=== PATIENT | male | born 1950 | race Caucasian/White ===

== ENCOUNTER 2020-06-12 01:43 | Inpatient (IN) | payer MEDICARE, MEDICAID, SELFPAY ==
[2020-06-12] VITALS (21 sets, daily range): BP systolic 76–129; BP diastolic 37–72; PULSE 55–111; RESP 17–26; TEMP 34.6–37.3; O2SAT 92–100; BMI 22.8; BMI 22.9
--- NOTE | 2020-06-12 02:18 | PCM.HP.STD ---
Problem List (1) Acute encephalopathy Status: Acute (2) Pneumonia due to COVID-19 virus Status: Acute (3) CHF exacerbation Status: Acute Qualifiers: Heart failure type: diastolic Qualified Code(s): I50.33 - Acute on chronic diastolic (congestive) heart failure (4) Atrial flutter, paroxysmal Status: Acute (5) Type 2 diabetes mellitus with hypoglycemia Status: Acute Qualifiers: Diabetes mellitus snf insulin use: with snf use Diabetes mellitus complication detail: without coma Qualified Code(s): E11.649 - Type 2 diabetes mellitus with hypoglycemia without coma; Z79.4 - correction (current) use of insulin (6) ESRD (end stage renal disease) on dialysis Status: Chronic (7) Hypertension Status: Chronic Qualifiers: Hypertension type: essential hypertension Qualified Code(s): I10 - Essential (primary) hypertension (8) Hyperlipidemia Status: Chronic Qualifiers: Hyperlipidemia type: unspecified Qualified Code(s): E78.5 - Hyperlipidemia, unspecified (9) Hypothyroidism Status: Chronic Qualifiers: Hypothyroidism type: unspecified Qualified Code(s): E03.9 - Hypothyroidism, unspecified (10) Tobacco use Status: Chronic (11) Alzheimer's dementia Status: Chronic Qualifiers: Alzheimer's disease onset: unspecified onset Dementia behavioral disturbance: without behavioral disturbance Qualified Code(s): G30.9 - Alzheimer's disease, unspecified; F02.80 - Dementia in other diseases classified elsewhere without behavioral disturbance (12) History of alcohol abuse Status: Chronic History of Present Illness Date of Admission: 06/12/20 Chief Complaint: Encephalopathy, COVID, ? New Aflutter The patient is a 69 y/o M from [facility] w/ PMHx: Former EtOH Abuse, Alzheimer's dementia, GERD, Diastolic CHF, ESRD on HD T, , Sat, HTN, HLD, Hypothyroidism, Diabetes mellitus type II who presents to the [facility] as direct admission from [facility] ED with history of recent Covid testing 2 days prior on Thursday with history of increased confusion, noted to be encephalopathic at a skilled facility, arrived unkempt with report of nausea, emesis and loose stools with no specific fever, cough or dyspnea complaint but blood sugar upon presentation to be significantly low at 20 with some mental status improvement following 2 amp D50 upon presentation. Patient denies any alteration in sense of taste or smell. Upon presentation to [facility] patient mental status completely returned to baseline, appropriately answering questions, denies any acute complaints at this time. He denies any specific weight gain or orthopnea does admit he has intermittent issues with volume overload. Work-up in the OSH ED included: VS: T 36.5, HR 53, RR 20, 98% on RA, BP 94/51 (initial BP 102/61->89/54 low) CBC: WBC 7.5, Hgb 10.8, plts 161 without marked shift CMP: Na 138, K 4.5, Chl 104, CO2 22, BUN/Cr 45/6.4, glucose 20 (2 amp-->202 glucose), T Bili 1.6, AST/ALT 19/, Alk phos 128 LDH 139 Lactic acid 0.9 NH 42 INR 1.4 EKG: Aflutter, 4:1 block, 53 beats per minute Troponin: 0.07 Medications: CXR with bibasil infiltrates CTPA with cardiomegaly, small BL effusions, bibasilar infiltrates with evidence congestion CT head without acute intracranial findings, L occiptal encephalomalacia Medications: Levaquin 750 mg IV x 1, 250 cc NS bolus Past Medical History Past Medical History (Chronic Problems): Chronic Problems ESRD (end stage renal disease) on dialysis (Chronic) Hypertension (Chronic) Hyperlipidemia (Chronic) Hypothyroidism (Chronic) Tobacco use (Chronic) Alzheimer's dementia (Chronic) History of alcohol abuse (Chronic) Allergies rosin Allergy (Verified 06/26/16 07:04) Unknown Home Medications: Ambulatory Orders Medication Instructions Recorded Aspirin [Aspirin, Baby] 81 mg PO DAILY@0800 11/25/13 Docusate Sodium [Colace] 100 mg PO BID 11/25/13 Gabapentin [Neurontin] 300 mg PO BIDCM 11/25/13 Insulin Aspart [Novolog Flexpen] 15 units SC TIDCM 11/25/13 Insulin Detemir [Levemir FlexPen] 45 units SC QHS 11/25/13 Isosorbide DN [Isordil] 10 mg PO BID 11/25/13 Levothyroxine [Synthroid] 25 mcg PO DAILY 11/25/13 Omeprazole [Prilosec] 20 mg PO DAILY 11/25/13 Vitamin B Complex Vit C No.3 [B 1 each PO DAILY 11/25/13 Complex with Vitamin C] Amlodipine [Norvasc] 10 mg PO DAILY 06/26/16 Atorvastatin Calcium [Lipitor] 20 mg PO QHS 06/26/16 Calcium Acetate [Phoslo Gel Cap] 667 mg PO TIDCM 06/26/16 Carvedilol [Coreg] 25 mg PO BID 06/26/16 Cinacalcet HCl [Sensipar] 30 mg PO DAILY 06/26/16 Clonidine HCl 0.1 mg PO DAILY 06/26/16 Ergocalciferol [Vitamin D] 50,000 unit PO Q7D 06/26/16 Surgical History: - - Fistula placement. Psychiatric History: No pertinent psych hx Lives: [facility] Smoking Status: Former smoker - Patient quit cigarette tobacco usage approximately 35 years prior with prior to his approximately 1 pack/day since he been a teenager. Tobacco Use: Non-smoker Alcohol: Occasional - Notes previous history of alcohol abuse, now will very rarely have 1 beer. Drugs: None - *Family History Maternal History Items: Cancer - Mother with history of cancer, unclear type. Paternal History Items: Heart Disease Review of Systems Constitutional: Reports: Anorexia, Malaise, Weakness, Fatigue. Denies: Chills, Fever, Weight Change HEENT: Denies: Head Aches, Sinus Congestion, Sinus Drainage Cardiovascular: Denies: Chest Pain, Palpitations Respiratory: Denies: Cough, Shortness of Breath, Shortness of breath at rest, Shortness of breath upon exertion, Sputum production Gastrointestinal: Reports: Diarrhea. Denies: Abdominal Pain, Nausea, Vomiting Genitourinary: Denies: Dysuria Musculoskeletal: Denies: Joint Pain, Joint Tenderness Skin: Denies: Rash, Wounds Neurological: Reports: Confusion. Denies: Focal weakness, Numbness, Tingling Psychiatric: Denies: Anxiety, Depression, Homicidal Ideations, Suicidal Ideations Hematologic/ Lymphatic: Reports: Anemia. Denies: Easy Bruising, Easy Bleeding VTE Information - Inpt Only VTE Present on Admission: No VTE Mechan Device Prophylaxis: SCD's VTE Pharm Prophylaxis ordered?: Yes Patient Problems: Active and Suspected Problems Acute encephalopathy (Acute) Pneumonia due to COVID-19 virus (Acute) CHF exacerbation (Acute) Atrial flutter, paroxysmal (Acute) Type 2 diabetes mellitus with hypoglycemia (Acute) Subjective: Seated upright in the PCU bed, fatigued otherwise no acute distress, mental status improved. Objective: Physical Examination: General: awake, alert, oriented x > 3 including to person, place, year, month, president, cooperative, seated upright in the PCU bed in no apparent distress. Skin: normal color, turgor, no icterus, cyanosis except bilateral lower extremity chronic venous stasis skin changes. HEENT: AT/NC, EOMI, PERRLA, moderately MM, poor dentition, no carotid bruits, no marked JVD noted. Lungs: Diminished breath sounds bilaterally, greater bilateral bases, minimal rales, no obvious distress, no obvious rhonchi or wheezing. Heart: Bradycardic; no gallop, rub audible. Abdomen: soft, thin habitus, NTTP, ND, normal BS, no HSM. Extremities: no cyanosis, clubbing, or edema, see skin, left upper extremity with positive thrill but very soft and focal specific. Neurological: patient awake, alert, oriented as noted; cognitive function returned to baseline intact; pupils equally reactive to light and accomodation; cranial nerves II-XII grossly normal, moving all 4 extremities, no focal deficits, strength moderately global decreased. Psychiatric: affect appears fatigued otherwise normal, no acute evidence of depressive or anxiety feelings. - Physical Exam Current Medications Acetaminophen (Acetaminophen 325 Mg Tablet) 650 mg PO Q6H PRN PRN PRN Reason: Pain Score 1-10/Temp > 100.7 F Al Hydroxide/Mg Hydroxide (Mag Hydrox/Al Hydrox/Simeth 30 Ml Udc) 30 ml PO Q6H PRN PRN PRN Reason: Gastric Burning Apixaban (Apixaban 2.5 Mg Tablet) 2.5 mg PO BID [place] Furosemide (Furosemide 40 Mg/4 Ml Vial) 40 mg IV BID@1000,1800 [place] Guaifenesin (Guaifenesin 10 Ml Udc (200mg/10ml)) 20 ml PO Q4H PRN PRN PRN Reason: COUGH Hydralazine HCl (Hydralazine 20 Mg/Ml Vial) 10 mg IV Q4H PRN PRN PRN Reason: SBP > 160 Insulin Human Lispro (Insulin Lispro 100 Unit/Ml Insuln.Pen) 0 unit SC ACHS [place]; Protocol Melatonin (Melatonin 3 Mg Tablet) 3 mg PO QHS PRN PRN PRN Reason: INSOMNIA Morphine Sulfate (Morphine 2 Mg/Ml Syringe) 2 mg IV Q3H PRN PRN PRN Reason: Pain Score 6-10 Nitroglycerin (Nitroglycerin (Inpatient Use) 0.4 Mg Tab.Subl) 0.4 mg SUBLINGUAL Q5M PRN PRN Reason: CARDIAC/CHEST PAIN Ondansetron HCl (Ondansetron 4 Mg/2 Ml Vial) 4 mg IV Q8H PRN PRN PRN Reason: NAUSEA/VOMITING Oxycodone HCl (Oxycodone 5 Mg Tablet) 5 mg PO Q4H PRN PRN PRN Reason: Pain Score 4-5 Prochlorperazine Edisylate (Prochlorperazine 10 Mg/2 Ml Vial) 5 mg IV Q4H PRN PRN PRN Reason: Breakthrough Nausea/Vomiting Throat Lozenges (Benzocaine/Menthol 1 Lozenge) 1 lozenge MUCOUS MEM Q2H PRN PRN PRN Reason: SORE THROAT Assessment/Plan All Active Problems Acute encephalopathy (Acute) Pneumonia due to COVID-19 virus (Acute) CHF exacerbation (Acute) Atrial flutter, paroxysmal (Acute) Type 2 diabetes mellitus with hypoglycemia (Acute) The patient is a 69 y/o M from [facility] w/ PMHx: Former EtOH Abuse, Alzheimer's dementia, GERD, Diastolic CHF, ESRD on HD T, , Thu, HTN, HLD, Hypothyroidism, Diabetes mellitus type II who presents to the [facility] as direct admission from [facility] ED with history of recent Covid testing 2 days prior on Thursday with history of increased confusion, noted to be encephalopathic at a skilled facility, arrived unkempt with report of nausea, emesis and loose stools with no specific fever, cough or dyspnea complaint but poor oral intake with hypoglycemia. 1. Acute Encephalopathy, Multifactorial, secondary to Nausea, Emesis, Diarrhea w/ BL Pneumonia secondary to Acute Viral Syndrome, COVID-19, #2, #3, #4: Patient from outside ED report with recent Covid test positive, chest x-ray per their report with positive bilateral pneumonia although they report CT with concerning findings for bibasilar infiltrates but also noted congestion this findings may be multifactorial, will admit to the Covid PCU unit, will maintain on oxygen with wean as tolerated to room air, HOB, IS parameters w/ pending sputum cultures and urine antigens, obtain respiratory viral panel, will obtain initial assessment Covid panel including procalcitonin, CRP, CPK, Ferritin, LDH, D-dimer, given questionable new onset atrial flutter will request ECHO, cycle cardiac enzymes, repeat EKG in AM, continue supportive care including q 2 hour turning including prone given no prone bed availability, given concern for volume overload will dose Lasix IV as noted. Given no overt hypoxia will defer immediate start of decadron. Infectious disease consulted, pending. 2. ? 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 Will initiate patient as blood pressure allows on Lasix 40 mg IV x 1 pending HD 06/12/20, maintain on cardiac telemetry, obtain cardiac enzyme series, obtain serial EKGs, monitor I/Os, obtain TSH and magnesium level, obtain ECHO. Starting on eliquis. May consider Cardiology consult. 3. New onset atrial flutter versus: EKG in ED w/ atrial flutter 4:1 noted at outside ED. Unclear if patient has a history, not in prior records per intermediate facility. Will maintain on telemetry, obtain EKG upon presentation to assure correct rhythm, obtain cardiac enzyme serial set, obtain magnesium level, obtain ECHO, obtain TSH level. CHADs scoring appropriate for anticoagulation therefore will place on eliquis regimen pending further history review and repeat EKG to assure correct rhythm. May consider cardiology consultation if appropriate. 4. Diabetes mellitus type II with symptomatic hypoglycemia: Patient with recent poor oral intake with significant hyperglycemia upon outside facility ED presentation with glucose 20, administered to amp with improvement of blood sugar to 200 range, mental status changes noted upon their presentation since appear resolved. Will will temporarily hold home insulin regimen given recent poor oral intake and significant hyperglycemia pending reassessment of intake, ADA/Cardiac/Renal diet, accu checks w/ ISS. HgbA1c pending. 5. ESRD: Will continue patient HD regimen T, Th, Sat, consult Nephrology, continue patient PhosLo and Sensipar regimen. 6. Hypertension: BP low normal at outside facility, pending repeat assessment would continue patient hypertensive regimen, noted prior to include Norvasc, Coreg, clonidine, isosorbide although suspect would need to be held, IV Lasix trial x1 as noted above pending HD, PRN hydralazine. 7. Hyperlipidemia: Continue home statin regimen. 8. Hypothyroidism: Continue home synthroid regimen. 9. Alzheimer's dementia with unclear behavioral disturbance history: Complicates presentation, long-term intermediate facility care resident. 10. Former alcohol abuse: Encouraged continued sobriety although patient does admit he will occasionally have a beer, intermediate facility at which she resides does not allow alcohol. 11. DVT prophylaxis: SCDs, eliquis regimen. 12. CODE status: Patient BIRDIE is his sister Junie and living will is currently in place. Discussed CODE status at length including difference between FULL code, DNR-CCA and DNR-CC status. Following discussions about the differences in these status, requested Full Code status but adamantly notes that per his living will he does not want to be on prolonged life support. Advanced Care Planning Face to Face Time: 16 minutes. Inpatient E&M: 84454 Init Hosp L3 Procedures: 12868 Advncd Care Plan 30 Min
--- NOTE | 2020-06-12 03:03 | EKG12_ITS ---
Test Reason : ADMISSION Blood Pressure : / mmHG Vent. Rate : 055 BPM Atrial Rate : 055 BPM P-R Int : 198 ms QRS Dur : 124 ms QT Int : 386 ms P-R-T Axes : 042 -63 235 degrees QTc Int : 369 ms Atrial Flutter Left axis deviation Left bundle branch block Abnormal ECG Confirmed by LISSET HAMMER, JUDY ([id number]), news assignment editor JAROD MERIDA ([id number]) on 06/13/2020 1:57:51 PM Referred By: ZUHAIR Confirmed By:JUDY DARLING MD
[2020-06-12] MEDS: Furosemide 40 MG/4 ML Vial IV (03:25)
[2020-06-12 03:26] LABS: Bedside Glucose 150 mg/dL (70-110)
[2020-06-12] MEDS: 0.9% Saline Lock 10 ML Syringe IV ×5 (03:26→23:50)
[2020-06-12 04:24] LABS: D-Dimer Quantitative (DVT/PE) 0.95 FEU/ug/m (0.27-0.49)
[2020-06-12 04:40] LABS: Procalcitonin 0.69 ng/mL (0.00-0.09)
[2020-06-12 05:27] LABS: Ferritin 14962 ng/mL (26-388); LDH 154 U/L (87-241); Magnesium 2.6 mg/dL (1.6-2.6); T4 Free Direct 5.88 ng/dL (0.76-1.46)
--- NOTE | 2020-06-12 05:55 | RAD_ITS ---
STUDY: X-RAY CHEST REASON FOR EXAM: Male, 69 years old. DYSPNEA, COUGH, COVID + TECHNIQUE: Single AP portable view of the chest. COMPARISON: None. FINDINGS: EKG electrodes are seen. Mild degree of increased markings are seen in the peripheral aspect of the right upper and right lower lobes with thickening of the right minor fissure. Mild increased markings in the lateral peripheral aspect of the left lung base. There is mild cardiac enlargement. Normal mediastinum and michael. Normal visualized pulmonary arteries. There is atherosclerotic tortuosity of the aortic arch and descending thoracic aorta. Normal visualized thoracic spine. Normal visualized ribs, clavicles, and shoulders. There is no demonstrated abnormality of the visualized soft tissue structures of the upper abdomen. RAD/Chest 1 View (Portable) IMPRESSION: Increased markings suggestive of early infiltrate in the peripheral lateral aspect of the right upper and right lower lobes as well as in the left mid lung. Thickening of the right minor fissure. Electronically Signed: Aj Caceres, at 9:12 EST , Service support ,
[2020-06-12 06:47] LABS: Absolute Lymphocyte Count 0.59 X10^3/uL (0.83-4.51); Absolute Neutrophil Count 5.8 X10^3/uL (2.0-7.7); Basophil# 0.01 X10^3/uL; Basophil% 0.1 % (0-1); Hematocrit 34.1 % (40-54); Hemoglobin 10.4 g/dL (13.0-16.5); Lymphocyte # 0.59 X10^3/ul (4.0); Lymphocyte % 8.5 % (19-41); Mean Corp Hgb Conc 30.5 g/dL (32-36); Mean Corpuscular Volume 98.3 fL (80-94); Mean Platelet Vol. 9.8 fl (6.2-12.0); Monocyte# 0.54 X10^3/uL; Monocyte% 7.8 % (0-10); NRBC Flagged by Analyzer 0 % (0-5); Neutrophil # 5.78 X10^3/uL (2.7-7.7); Neutrophil % 83.2 % (47-70); POSITIVE DIFFERENTIAL YES; POSITIVE MORPHOLOGY YES; Platelet Count 114 K/mm3 (150-450); RBC Distribution Width CV 19.1 % (11.6-14.6); RBC Distribution Width SD 68.5 fl (35.1-43.9); Red Blood Count 3.47 M/mm3 (4.6-6.2)
[2020-06-12 06:50] LABS: Differential Indicated SCAN CRITERIA MET
[2020-06-12 07:03] LABS: Differential Comment SCANNED; Macrocytosis RARE
[2020-06-12 07:46] LABS: ALB/GLOB Ratio 0.6 RATIO (0.9-2.4); AST(SGOT) 31 U/L (15-37); Alanine Aminotransfer ALT/SGPT 28 U/L (16-61); Albumin, Serum 2.7 g/dL (3.2-5.0); Alkaline Phosphatase 142 U/L (45-117); Anion Gap 10 (5-15); BUN 58 mg/dL (7-18); BUN/Creat Ratio 7.3 RATIO (10-20); Calcium,Total 7.1 mg/dL (8.5-10.1); Chloride 103 mmol/L (98-107); Creatinine, Serum 7.93 mg/dL (0.70-1.30); EST Glomerular Filtration Rate 7 mL/min (>60); Est Glom Filt Rate - Afr Amer 9 mL/min (>60); Estimated Creatinine Clearance 8.51 ml/min; Globulin 4.3 g/dL (2.2-4.2); Glucose 70 mg/dL (74-106); Sodium Level 137 mmol/L (136-145)
[2020-06-12 08:26] LABS: Bedside Glucose 71 mg/dL (70-110)
[2020-06-12 08:26] LABS: Bedside Glucose 55 mg/dL (70-110)
[2020-06-12 08:29] LABS: Hemoglobin A1c 6.7 % (3.8-5.6)
--- NOTE | 2020-06-12 09:26 | PCM.CONS.R ---
Consultation - Renal PCP/ Referring MD: Requesting physician: [] Primary care physician: Dr. Reginald Esteves MD - History of Present Illness History of Present Illness: The patient is a 69 year old M PMH of ESRD on TTS HD schedule. Patient was diagnosed witj COVID-19 infection 2 days ago Patient was brought in for change in mental status and was found to have hypoglycemia. Patient received D50 and mentation improved to baseline CT chest showed B/L pneumonia and congestion Patient was not seen or examined this am to limit exposure to COVID-19 viral infection and to preserve PPE. ROS and physical exam were not performed d/w with patient's nurse and reviewed the admission note. Patient is o 2l/m NC with S02 95%[] - Allergies Allergies: Allergies adhesive tape Allergy (Unknown, Verified 06/12/20 04:45) PT UNSURE OF REACTION rosin Allergy (Verified 06/26/16 07:04) Unknown - Current Medications Current Medications: Current Medications Acetaminophen (Acetaminophen 325 Mg Tablet) 650 mg PO Q6H PRN PRN PRN Reason: Pain Score 1-10/Temp > 100.7 F Al Hydroxide/Mg Hydroxide (Mag Hydrox/Al Hydrox/Simeth 30 Ml Udc) 30 ml PO Q6H PRN PRN PRN Reason: Gastric Burning Apixaban (Apixaban 2.5 Mg Tablet) 2.5 mg PO BID [place] Guaifenesin (Guaifenesin 10 Ml Udc (200mg/10ml)) 20 ml PO Q4H PRN PRN PRN Reason: COUGH Hydralazine HCl (Hydralazine 20 Mg/Ml Vial) 10 mg IV Q4H PRN PRN PRN Reason: SBP > 160 Insulin Human Lispro (Insulin Lispro 100 Unit/Ml Insuln.Pen) 0 unit SC ACHS [place]; Protocol Last Admin: 06/12/20 07:00 Dose: Not Given Documented by: Melatonin (Melatonin 3 Mg Tablet) 3 mg PO QHS PRN PRN PRN Reason: INSOMNIA Morphine Sulfate (Morphine 2 Mg/Ml Syringe) 2 mg IV Q3H PRN PRN PRN Reason: Pain Score 6-10 Nitroglycerin (Nitroglycerin (Inpatient Use) 0.4 Mg Tab.Subl) 0.4 mg SUBLINGUAL Q5M PRN PRN Reason: CARDIAC/CHEST PAIN Ondansetron HCl (Ondansetron 4 Mg/2 Ml Vial) 4 mg IV Q8H PRN PRN PRN Reason: NAUSEA/VOMITING Oxycodone HCl (Oxycodone 5 Mg Tablet) 5 mg PO Q4H PRN PRN PRN Reason: Pain Score 4-5 Prochlorperazine Edisylate (Prochlorperazine 10 Mg/2 Ml Vial) 5 mg IV Q4H PRN PRN PRN Reason: Breakthrough Nausea/Vomiting Sodium Chloride (0.9% Saline Lock 10 Ml Syringe) 10 - 40 ml IV UD PRN PRN Reason: SALINE FLUSH Last Admin: 06/12/20 04:35 Dose: 10 ml Documented by: Throat Lozenges (Benzocaine/Menthol 1 Lozenge) 1 lozenge MUCOUS MEM Q2H PRN PRN PRN Reason: SORE THROAT - Past Medical History Past Medical History (Chronic Problems): Chronic Problems ESRD (end stage renal disease) on dialysis (Chronic) Hypertension (Chronic) Hyperlipidemia (Chronic) Hypothyroidism (Chronic) Tobacco use (Chronic) Alzheimer's dementia (Chronic) History of alcohol abuse (Chronic) - Past Surgical History Surgical History: - - Fistula placement. - Social History Smoking Status: Former smoker - Patient quit cigarette tobacco usage approximately 35 years prior with prior to his approximately 1 pack/day since he been a teenager. Alcohol: Occasional - Notes previous history of alcohol abuse, now will very rarely have 1 beer. Drugs: None - Family History Maternal History Items: Cancer - Mother with history of cancer, unclear type. Paternal History Items: Heart Disease Patient Problems: Active and Suspected Problems Acute encephalopathy (Acute) Pneumonia due to COVID-19 virus (Acute) CHF exacerbation (Acute) Atrial flutter, paroxysmal (Acute) Type 2 diabetes mellitus with hypoglycemia (Acute) - Physical Exam Vitals/I&O's: Vital Signs Temp Pulse Resp BP Pulse Ox 97.8 F 66 18 95/54 L 95 06/12/20 08:00 06/12/20 08:00 06/12/20 08:00 06/12/20 08:00 06/12/20 08:00 Oxygen Flow Rate (L/min) 2 Oxygen Delivery Method Nasal Cannula Weight: 68.7 kg Body Mass Index (BMI) 22.8 Intake and Output for Last 24 Hours 06/10/20 06/11/2006/12/20 23:59 23:59 23:59 Intake Total 0 / 0 Output Total 0 / 0 Balance 0 / 0 Microbiology Past 72 Hours 06/12/20 05:03 Mucosa - Nasopharyngeal Respiratory Panel (PCR) - Final Laboratory Results 06/12/20 03:16: POC Glucose 150 H 06/12/20 04:00: Magnesium 2.6, Ferritin 98071 H, Lactate Dehydrogenase 154, Troponin I 0.042, C-React Prot Ext Range 95.90 H, TSH 1.40, Free T4 5.88 H 06/12/20 04:00: D-Dimer Quant (PE/DVT) 0.95 H* 06/12/20 04:00: Procalcitonin 0.69 H 06/12/20 06:40: WBC 7.0, RBC 3.47 L, Hgb 10.4 L, Hct 34.1 L, MCV 98.3 H, MCH 30.0, MCHC 30.5 L, RDW Std Deviation 68.5 H, RDW Coeff of Deejay 19.1 H, Plt Count 114 L, MPV 9.8, Immature Gran % (Auto) 0.400, Neut % (Auto) 83.2 H, Lymph % (Auto) 8.5 L, [place] % (Auto) 7.8, Eos % (Auto) 0.0, Baso % (Auto) 0.1, Absolute Neuts (auto) 5.8, Absolute Lymphs (auto) 0.59 L, Nucleated RBC % 0, Differential Comment SCANNED, Macrocytosis RARE 06/12/20 06:40: Sodium 137, Potassium 5.0, Chloride 103, Carbon Dioxide 24.0, Anion Gap 10, BUN 58 H, Creatinine 7.93 H*, Estim Creat Clear Calc 8.51, Est GFR (MDRD) Af Amer 9 L, Est GFR (MDRD) Non-Af 7 L, BUN/Creatinine Ratio 7.3 L, Glucose 70 L, Calcium 7.1 L, Total Bilirubin 1.50 H, AST 31, ALT 28, Alkaline Phosphatase 142 H, Troponin I 0.040, Total Protein 7.0, Albumin 2.7 L, Globulin 4.3 H, Albumin/Globulin Ratio 0.6 L 06/12/20 06:40: Hemoglobin A1c 6.7 H 06/12/20 06:56: POC Glucose 55 L 06/12/20 07:11: POC Glucose 71 Current Medications Acetaminophen (Acetaminophen 325 Mg Tablet) 650 mg PO Q6H PRN PRN PRN Reason: Pain Score 1-10/Temp > 100.7 F Al Hydroxide/Mg Hydroxide (Mag Hydrox/Al Hydrox/Simeth 30 Ml Udc) 30 ml PO Q6H PRN PRN PRN Reason: Gastric Burning Apixaban (Apixaban 2.5 Mg Tablet) 2.5 mg PO BID [place] Guaifenesin (Guaifenesin 10 Ml Udc (200mg/10ml)) 20 ml PO Q4H PRN PRN PRN Reason: COUGH Hydralazine HCl (Hydralazine 20 Mg/Ml Vial) 10 mg IV Q4H PRN PRN PRN Reason: SBP > 160 Insulin Human Lispro (Insulin Lispro 100 Unit/Ml Insuln.Pen) 0 unit SC ACHS [place]; Protocol Last Admin: 06/12/20 07:00 Dose: Not Given Documented by: Melatonin (Melatonin 3 Mg Tablet) 3 mg PO QHS PRN PRN PRN Reason: INSOMNIA Morphine Sulfate (Morphine 2 Mg/Ml Syringe) 2 mg IV Q3H PRN PRN PRN Reason: Pain Score 6-10 Nitroglycerin (Nitroglycerin (Inpatient Use) 0.4 Mg Tab.Subl) 0.4 mg SUBLINGUAL Q5M PRN PRN Reason: CARDIAC/CHEST PAIN Ondansetron HCl (Ondansetron 4 Mg/2 Ml Vial) 4 mg IV Q8H PRN PRN PRN Reason: NAUSEA/VOMITING Oxycodone HCl (Oxycodone 5 Mg Tablet) 5 mg PO Q4H PRN PRN PRN Reason: Pain Score 4-5 Prochlorperazine Edisylate (Prochlorperazine 10 Mg/2 Ml Vial) 5 mg IV Q4H PRN PRN PRN Reason: Breakthrough Nausea/Vomiting Sodium Chloride (0.9% Saline Lock 10 Ml Syringe) 10 - 40 ml IV UD PRN PRN Reason: SALINE FLUSH Last Admin: 06/12/20 04:35 Dose: 10 ml Documented by: Throat Lozenges (Benzocaine/Menthol 1 Lozenge) 1 lozenge MUCOUS MEM Q2H PRN PRN PRN Reason: SORE THROAT Assessment/Plan All Active Problems Acute encephalopathy (Acute) Pneumonia due to COVID-19 virus (Acute) CHF exacerbation (Acute) Atrial flutter, paroxysmal (Acute) Type 2 diabetes mellitus with hypoglycemia (Acute) 1- ESRD on TTS HD schedule. 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 Salcedo HD session today as per the chronic order 2- covid -19 pneumonia . as per the hospitalist service Will aim UF to his EDW 3- hypoglycemia with change in mental status. improved with D50
[2020-06-12] MEDS: APIXABAN 2.5 MG TABLET PO ×2 (09:35→20:27)
--- NOTE | 2020-06-12 10:14 | CASEMGMT ---
Patient is from [facility]. NATHALIE faxed information to Sadi Davison. Jami [employer]
--- NOTE | 2020-06-12 11:29 | CON.PCM_ITS ---
Problem List (1) Pneumonia due to COVID-19 virus Status: Acute Reason for Consult: covid Consulted by: Dr. Cotton History of Present Illness: The patient is a 69 year old M [] 69 y/o M [facility] resident, reports one week of high fever, not feeling well, mild aches/diarrhea/cough. Had worsening confusion, lethargy, taken to ED. Admitted on o2, feeling better this AM. Covid (+) this past week at [facility]. Full ROS performed and neg except as noted above. - Medical History Past Medical History (Chronic Problems): Chronic Problems ESRD (end stage renal disease) on dialysis (Chronic) Hypertension (Chronic) Hyperlipidemia (Chronic) Hypothyroidism (Chronic) Tobacco use (Chronic) Alzheimer's dementia (Chronic) History of alcohol abuse (Chronic) Allergies/Adverse Reactions: Allergies adhesive tape Allergy (Unknown, Verified 06/12/20 04:45) PT UNSURE OF REACTION rosin Allergy (Verified 06/26/16 07:04) Unknown Home Medications: Ambulatory Orders Medication Instructions Recorded Aspirin [Aspirin, Baby] 81 mg PO DAILY@0800 11/25/13 Docusate Sodium [Colace] 100 mg PO BID 11/25/13 Gabapentin [Neurontin] 200 mg PO DAILY 11/25/13 Insulin Aspart [Novolog Flexpen] 12 units SC TIDCM 11/25/13 Insulin Detemir [Levemir FlexPen] 40 units SC DAILY 11/25/13 Isosorbide DN [Isordil] 10 mg PO BID 11/25/13 Levothyroxine [Synthroid] 25 mcg PO DAILY 11/25/13 Omeprazole [Prilosec] 20 mg PO DAILY 11/25/13 Vitamin B Complex Vit C No.3 [B 1 each PO DAILY 11/25/13 Complex with Vitamin C] Amlodipine [Norvasc] 10 mg PO DAILY 06/26/16 Atorvastatin Calcium [Lipitor] 60 mg PO QHS 06/26/16 Calcium Acetate [Phoslo Gel Cap] 667 mg PO TIDCM 06/26/16 Carvedilol [Coreg] 6.25 mg PO BID 06/26/16 Cinacalcet HCl [Sensipar] 30 mg PO DAILY 06/26/16 Clonidine HCl 0.1 mg PO DAILY 06/26/16 Ergocalciferol [Vitamin D] 50,000 unit PO DAILY 06/26/16 Dexamethasone [Decadron] 6 mg IM DAILY 06/12/20 Famotidine 20 mg PO DAILY 06/12/20 Sevelamer Carbonate [Renvela] 800 mg PO TID 06/12/20 - Social History SMOKING STATUS:: Former smoker Vital Signs Temp Pulse Resp BP Pulse Ox 98.4 F 84 19 H 99/72 97 06/12/20 10:00 06/12/20 10:00 06/12/20 10:00 06/12/20 10:00 06/12/20 10:00 Oxygen Flow Rate (L/min) 2 Oxygen Delivery Method Nasal Cannula Weight: 68.7 kg Body Mass Index (BMI) 22.8 Microbiology Past 72 Hours 06/12/20 05:03 Respiratory Panel (PCR) - Final Mucosa - Nasopharyngeal Laboratory Tests Past 24 Hrs 06/12/20 06/12/20 06/12/20 04:00 04:00 04:00 WBC RBC Hgb Hct MCV MCH MCHC RDW Std Deviation RDW Coeff of Deejay Plt Count MPV Immature Gran % (Auto) Neut % (Auto) Lymph % (Auto) [place] % (Auto) Eos % (Auto) Baso % (Auto) Absolute Neuts (auto) Absolute Lymphs (auto) Nucleated RBC % Differential Comment Macrocytosis D-Dimer Quant (PE/DVT) 0.95 H* Sodium Potassium Chloride Carbon Dioxide Anion Gap BUN Creatinine Estim Creat Clear Calc Est GFR (MDRD) Af Amer Est GFR (MDRD) Non-Af BUN/Creatinine Ratio Glucose Hemoglobin A1c Calcium Magnesium 2.6 Ferritin 74983 H Total Bilirubin AST ALT Alkaline Phosphatase Lactate Dehydrogenase 154 Troponin I 0.042 C-React Prot Ext Range 95.90 H Total Protein Albumin Globulin Albumin/Globulin Ratio Procalcitonin 0.69 H TSH 1.40 Free T4 5.88 H 06/12/20 06/12/20 06/12/20 06:40 06:40 06:40 WBC 7.0 RBC 3.47 L Hgb 10.4 L Hct 34.1 L MCV 98.3 H MCH 30.0 MCHC 30.5 L RDW Std Deviation 68.5 H RDW Coeff of Deejay 19.1 H Plt Count 114 L MPV 9.8 Immature Gran % (Auto) 0.400 Neut % (Auto) 83.2 H Lymph % (Auto) 8.5 L [place] % (Auto) 7.8 Eos % (Auto) 0.0 Baso % (Auto) 0.1 Absolute Neuts (auto) 5.8 Absolute Lymphs (auto) 0.59 L Nucleated RBC % 0 Differential Comment SCANNED Macrocytosis RARE D-Dimer Quant (PE/DVT) Sodium 137 Potassium 5.0 Chloride 103 Carbon Dioxide 24.0 Anion Gap 10 BUN 58 H Creatinine 7.93 H* Estim Creat Clear Calc 8.51 Est GFR (MDRD) Af Amer 9 L Est GFR (MDRD) Non-Af 7 L BUN/Creatinine Ratio 7.3 L Glucose 70 L Hemoglobin A1c 6.7 H Calcium 7.1 L Magnesium Ferritin Total Bilirubin 1.50 H AST 31 ALT 28 Alkaline Phosphatase 142 H Lactate Dehydrogenase Troponin I 0.040 C-React Prot Ext Range Total Protein 7.0 Albumin 2.7 L Globulin 4.3 H Albumin/Globulin Ratio 0.6 L Procalcitonin TSH Free T4 06/12/20 10:04 WBC RBC Hgb Hct MCV MCH MCHC RDW Std Deviation RDW Coeff of Deejay Plt Count MPV Immature Gran % (Auto) Neut % (Auto) Lymph % (Auto) [place] % (Auto) Eos % (Auto) Baso % (Auto) Absolute Neuts (auto) Absolute Lymphs (auto) Nucleated RBC % Differential Comment Macrocytosis D-Dimer Quant (PE/DVT) Sodium Potassium Chloride Carbon Dioxide Anion Gap BUN Creatinine Estim Creat Clear Calc Est GFR (MDRD) Af Amer Est GFR (MDRD) Non-Af BUN/Creatinine Ratio Glucose Hemoglobin A1c Calcium Magnesium Ferritin Total Bilirubin AST ALT Alkaline Phosphatase Lactate Dehydrogenase Troponin I 0.036 C-React Prot Ext Range Total Protein Albumin Globulin Albumin/Globulin Ratio Procalcitonin TSH Free T4 - Other Studies Radiology: [] reviewed Other Studies: [] Route of nutrition/ use of supplements: [] Nutritional Intake: [] IV Site: [] Trivedi Catheter: [] - Physical Exam General: Alert, Oriented x3, Cooperative, No apparent distress HEENT: Atraumatic, PERRLA, EOMI Neck: Supple, No Nodes Lungs: Diminished Cardiovascular: Regular rate, Regular Rhythm Abdomen: Soft, Non Tender, Non-Distended Extremities: No edema Skin: No rashes IV Site: Peripheral, without redness Musculoskeletal: No Tenderness to Palpation of Joints or Extremities Neurological: Cranial nerves II-XII grossly intact - Assessment/Plan Antibiotics: [] Assessment/Plan: [] Active and Suspected Problems Acute encephalopathy (Acute) Pneumonia due to COVID-19 virus (Acute) CHF exacerbation (Acute) Atrial flutter, paroxysmal (Acute) Type 2 diabetes mellitus with hypoglycemia (Acute) ESRD with covid and hypoxia - Sx started ~06/05. Will start dex. Reviewed EUA and risk/benefit of convalescent plasma, he agrees with treatment. Not candidate for remdesivir due to GFR. Will follow, thank you, d/w Dr. Cotton
--- NOTE | 2020-06-12 11:33 | CASEMGMT ---
NATHALIE called [facility] and left a message for Maria Esther in admissions. Jami STEEN MSW
[2020-06-12 11:36] LABS: Bedside Glucose 122 mg/dL (70-110)
--- NOTE | 2020-06-12 12:51 | PCM.HOSP.N ---
Hospitalist Note Patient was seen and examined briefly today, he is a poor informant, I called his group home to get medical information concerning his past history of cardiomyopathy-there was no record of any echocardiogram and there files, I also called his physician's office and they could find no records of an echocardiogram in the past. Finally, I called [facility] and they did have an echocardiogram from 2012 and I asked them to forward this to PCU. Patient does not appear to be in any distress, he is not short of breath or having chest pain. I feel the patient does not need a complete echocardiogram at this point, he is in atrial fibrillation and his rate appears to be controlled-he is on carvedilol at the group home which I have continued here. Patient will undergo dialysis today, he will be seen by nephrology and infectious diseases.
--- NOTE | 2020-06-12 16:50 | DIALYSIS ---
HD x 3.5 hours complete. Tolerated tx fairly well. UF of 800ml. Used left forearm fistula. [place] removed post tx and pressure applied x 10 minutes. Hemostasis achieved. Fresh gauze and tape applied. Positive thrill/bruit noted. Report was given to SELENA Eric.
[2020-06-12] MEDS: SEVELAMER CARBONATE 800 MG TABLET PO (16:52)
[2020-06-12] MEDS: dexAMETHasone 4 MG Tablet 6 MG PO (16:52)
[2020-06-12 17:36] LABS: Bedside Glucose 46 mg/dL (70-110)
[2020-06-12 17:36] LABS: Bedside Glucose 93 mg/dL (70-110)
[2020-06-12 18:09] LABS: Glucose 104 mg/dL (74-106)
[2020-06-12] MEDS: Carvedilol 6.25 MG Tablet PO (20:27)
[2020-06-12] MEDS: Atorvastatin Calcium 20 MG Tablet 60 MG PO (20:27)
[2020-06-12] MEDS: Ondansetron 4 MG/2 ML Vial IV (20:32)
[2020-06-12 20:41] LABS: Bedside Glucose 102 mg/dL (70-110)
--- NOTE | 2020-06-12 22:46 | PCM.HOSP.N ---
Hospitalist Note Patient rate improved, not currently in flutter, appears to be vacillating into atrial fibrillation, rate in the 100s, frequent bouts of VT noted on monitor and discussed with staff, given serially recurring will place on amiodarone with bolus and drip. Patient had already cycled cardiac enzymes. Echocardiogram that was ordered upon his admission has been canceled. Will defer reordering as well as cardiology evaluation in a.m. to primary physician unless patient with new presentation requiring immediate evaluation. Patient TSH normal with mildly elevated free T4, potassium normal and magnesium normal.
--- NOTE | 2020-06-12 22:46 | NURSING ---
report given to nihco
[2020-06-12] MEDS: Amiodarone 360 MG in Dextrose 5% Viaflo Bag 192.8 ML 33.3 MG CONT INF (23:49)
[2020-06-13] VITALS (27 sets, daily range): BP systolic 75–112; BP diastolic 41–59; PULSE 54–89; RESP 15–25; TEMP 36.3–36.9; O2SAT 94–100
[2020-06-13] MEDS: 0.9% Saline Lock 10 ML Syringe IV ×2 (02:37→03:49)
[2020-06-13 05:50] LABS: Bedside Glucose 205 mg/dL (70-110)
--- NOTE | 2020-06-13 05:55 | EKG12_ITS ---
Test Reason : AM EKG Blood Pressure : / mmHG Vent. Rate : 078 BPM Atrial Rate : 234 BPM P-R Int : 000 ms QRS Dur : 124 ms QT Int : 462 ms P-R-T Axes : 000 -63 191 degrees QTc Int : 526 ms Atrial flutter with variable A-V block Left axis deviation ST & T wave abnormality, consider inferolateral ischemia Abnormal ECG Confirmed by TJ HAMMER, FAYE ([id number]), visual effects editor BRITTANY GERARDO ([id number]) on 06/18/2020 10:40:53 AM Referred By: FLAQUITA Confirmed By:FAYE SPENCER MD
[2020-06-13] MEDS: Insulin Lispro 100 UNIT/ML INSULN.PEN SC ×4 (06:47→20:52)
[2020-06-13 06:55] LABS: Bedside Glucose 210 mg/dL (70-110)
[2020-06-13 08:27] LABS: Absolute Lymphocyte Count 0.38 X10^3/uL (0.83-4.51); Absolute Neutrophil Count 5.8 X10^3/uL (2.0-7.7); Hematocrit 31.6 % (40-54); Hemoglobin 9.4 g/dL (13.0-16.5); Lymphocyte # 0.38 X10^3/ul (4.0); Lymphocyte % 5.9 % (19-41); Mean Corp Hgb Conc 29.7 g/dL (32-36); Mean Corpuscular Hgb 29.7 pg (27.0-32.0); Mean Platelet Vol. 9.7 fl (6.2-12.0); Monocyte# 0.26 X10^3/uL; NRBC Flagged by Analyzer 0 % (0-5); Neutrophil # 5.77 X10^3/uL (2.7-7.7); Neutrophil % 89.3 % (47-70); POSITIVE DIFFERENTIAL YES; POSITIVE MORPHOLOGY YES; Platelet Count 131 K/mm3 (150-450); RBC Distribution Width CV 19.1 % (11.6-14.6); RBC Distribution Width SD 70.8 fl (35.1-43.9); Red Blood Count 3.16 M/mm3 (4.6-6.2); White Blood Count 6.5 K/mm3 (4.4-11.0)
[2020-06-13 08:35] LABS: Differential Indicated SCAN CRITERIA MET
[2020-06-13 08:41] LABS: BUN 34 mg/dL (7-18); Creatinine, Serum 4.93 mg/dL (0.70-1.30); Glucose 227 mg/dL (74-106)
[2020-06-13 08:42] LABS: ALB/GLOB Ratio 0.7 RATIO (0.9-2.4); AST(SGOT) 29 U/L (15-37); Alanine Aminotransfer ALT/SGPT 28 U/L (16-61); Albumin, Serum 2.8 g/dL (3.2-5.0); Alkaline Phosphatase 124 U/L (45-117); Anion Gap 8 (5-15); BUN/Creat Ratio 6.9 RATIO (10-20); Chloride 102 mmol/L (98-107); EST Glomerular Filtration Rate 13 mL/min (>60); Est Glom Filt Rate - Afr Amer 15 mL/min (>60); Globulin 4.1 g/dL (2.2-4.2); Potassium 4.9 mmol/L (3.5-5.1); Protein, Total 6.9 g/dL (6.4-8.2); Sodium Level 134 mmol/L (136-145)
[2020-06-13 09:00] LABS: Anisocytosis 3+; Differential Comment SCANNED; Hypochromasia 2+
[2020-06-13] MEDS: Aspirin 81 MG TAB.CHEW PO (09:06)
[2020-06-13] MEDS: Carvedilol 6.25 MG Tablet PO ×2 (09:06→20:51)
[2020-06-13] MEDS: SEVELAMER CARBONATE 800 MG TABLET PO ×3 (09:06→17:45)
[2020-06-13] MEDS: Pantoprazole Sodium 20 MG Tablet PO (09:07)
[2020-06-13] MEDS: Levothyroxine 25 MCG TABLET PO (09:07)
[2020-06-13] MEDS: APIXABAN 2.5 MG TABLET PO ×2 (09:07→20:52)
[2020-06-13] MEDS: Famotidine 20 MG Tablet PO (09:07)
[2020-06-13] MEDS: Cinacalcet HCl 30 MG Tablet PO (09:07)
[2020-06-13] MEDS: dexAMETHasone 4 MG Tablet 6 MG PO (09:12)
[2020-06-13 11:26] LABS: Bedside Glucose 334 mg/dL (70-110)
[2020-06-13] MEDS: Amiodarone 200 MG Tablet 400 MG PO (12:05)
--- NOTE | 2020-06-13 14:00 | PCM.PROGNOTE ---
Patient Problems: Active and Suspected Problems Acute encephalopathy (Acute) Pneumonia due to COVID-19 virus (Acute) CHF exacerbation (Acute) Atrial flutter, paroxysmal (Acute) Type 2 diabetes mellitus with hypoglycemia (Acute) Subjective: Patient was seen and examined today, he had an episode of nonsustained wide-complex tachycardia that was either V. tach or tachycardia with aberrant conduction. He was given IV amiodarone but this was not followed up by oral amiodarone. I have started the patient on oral amiodarone today, I do not think obtaining an echocardiogram on this patient at this time will change my treatment of the patient so I have elected not to pursue an echocardiogram at this point. - Physical Exam Vitals/I&O's: Vital Signs Temp Pulse Resp BP Pulse Ox 98.4 F 89 18 112/59 L 98 06/13/20 09:04 06/13/20 09:04 06/13/20 09:04 06/13/20 09:04 06/13/20 09:04 Oxygen Flow Rate (L/min) 2 Oxygen Delivery Method Nasal Cannula Weight: 68 kg Body Mass Index (BMI) 22.8 Intake and Output for Last 24 Hours 06/11/20 06/12/20 06/13/20 23:59 23:59 23:59 Intake Total 833 / 839.1 1356.06 / 1356.06 Output Total 0 / 0 390 / 390 Balance 833 / 839.1 966.06 / 966.06 General: Alert, Oriented x3, Cooperative, No apparent distress, Well developed, Well nourished HEENT: Atraumatic, PERRLA, EOMI, Normocephalic Oral: Moist Mucosa Neck: Supple, Trachea Midline, Thyroid Normal Size and Texture Lungs: Clear to auscultation, Normal air movement, No rhonchi, No wheeze, No rales Cardiovascular: Normal S1, Normal S2, No murmurs, No Ectopic Activity, PMI Normal, Irregular Rate Abdomen: Bowel Sounds Present, Soft, Non Tender, Non-Distended, No Hepato-splenomegaly Extremities: No clubbing, No cyanosis, No edema, Capillary Refill Less than 3 Seconds Skin: No rashes, No breakdown Musculoskeletal: No Tenderness to Palpation of Joints or Extremities Neurological: Cranial nerves II-XII grossly intact, Neuro grossly intact, Sensory exam intact to light touch and pain Psych/Mental Status: Normal Affect, Appropriate, Alert and oriented to time, place, person, mood and affect Microbiology Past 72 Hours 06/13/20 06:35 Urine, Random Legionella Antigen - Final 06/13/20 06:35 Urine, Random Streptococcus pneumoniae Antigen (M - Final 06/12/20 09:10 Stool Enteric Bacteriology - Final 06/12/20 09:10 Stool C. difficile DNA Amplification - Final 06/12/20 05:03 Mucosa - Nasopharyngeal Respiratory Panel (PCR) - Final Laboratory Results 06/12/20 16:48: POC Glucose 46 L 06/12/20 17:26: POC Glucose 93 06/12/20 17:45: Glucose 104 06/12/20 20:25: POC Glucose 102 06/13/20 03:51: POC Glucose 205 H 06/13/20 06:40: WBC Cancelled, Corrected WBC Cancelled, RBC Cancelled, Hgb Cancelled, Hct Cancelled, MCV Cancelled, MCH Cancelled, MCHC Cancelled, RDW Std Deviation Cancelled, RDW Coeff of Deejay Cancelled, Plt Count Cancelled, MPV Cancelled, Immature Gran % (Auto) Cancelled, Neut % (Auto) Cancelled, Lymph % (Auto) Cancelled, [place] % (Auto) Cancelled, Eos % (Auto) Cancelled, Baso % (Auto) Cancelled, Absolute Neuts (auto) Cancelled, Absolute Lymphs (auto) Cancelled, Total Counted Cancelled, Neutrophils % (Manual) Cancelled, Band Neutrophils % Cancelled, Lymphocytes % (Manual) Cancelled, Monocytes % (Manual) Cancelled, Eosinophils % (Manual) Cancelled, Basophils % (Manual) Cancelled, Metamyelocytes % Cancelled, Myelocytes % Cancelled, Promyelocytes % Cancelled, Blast Cells % Cancelled, Plasma Cell % (Manual) Cancelled, Other Cells % Cancelled, Nucleated RBC % Cancelled, Nucleated RBCs/100 WBC Cancelled, Differential Comment Cancelled, Diff Path Review Cancelled, Hypersegmented Neuts Cancelled, Atypical Lymphocytes Cancelled, Reactive Lymphocytes Cancelled, Smudge Cells Cancelled, Toxic Granulation Cancelled, Toxic Vacuolation Cancelled, Dohle Bodies Cancelled, Deann Rods Cancelled, Platelet Estimate Cancelled, Plt Morphology Comment Cancelled, RBC Morphology Cancelled, Polychromasia Cancelled, Hypochromasia Cancelled, Poikilocytosis Cancelled, Basophilic Stippling Cancelled, Anisocytosis Cancelled, Microcytosis Cancelled, Macrocytosis Cancelled, Spherocytes Cancelled, Sickle Cells Cancelled, Target Cells Cancelled, Tear Drop Cells Cancelled, Ovalocytes Cancelled, Stomatocytes Cancelled, [place] Bodies Cancelled, [place] Cells Cancelled, Bite Cells Cancelled, Crenated Cell Cancelled, Acanthocytes (Spur) Cancelled, Rouleaux Cancelled, Schistocytes Cancelled 06/13/20 06:40: Sodium Cancelled, Potassium Cancelled, Chloride Cancelled, Carbon Dioxide Cancelled, Anion Gap Cancelled, BUN Cancelled, Creatinine Cancelled, Estim Creat Clear Calc Cancelled, Est GFR (MDRD) Af Amer Cancelled, Est GFR (MDRD) Non-Af Cancelled, BUN/Creatinine Ratio Cancelled, Glucose Cancelled, Calcium Cancelled, Total Bilirubin Cancelled, AST Cancelled, ALT Cancelled, Alkaline Phosphatase Cancelled, Total Protein Cancelled, Albumin Cancelled, Globulin Cancelled, Albumin/Globulin Ratio Cancelled 06/13/20 06:42: POC Glucose 210 H 06/13/20 08:04: Sodium 134 L, Potassium 4.9, Chloride 102, Carbon Dioxide 24.0, Anion Gap 8, BUN 34 H, Creatinine 4.93 H, Estim Creat Clear Calc 13.60, Est GFR (MDRD) Af Amer 15 L, Est GFR (MDRD) Non-Af 13 L, BUN/Creatinine Ratio 6.9 L, Glucose 227 H, Calcium 7.0 L, Total Bilirubin 1.80 H, AST 29, ALT 28, Alkaline Phosphatase 124 H, Total Protein 6.9, Albumin 2.8 L, Globulin 4.1, Albumin/Globulin Ratio 0.7 L 06/13/20 08:04: WBC 6.5, RBC 3.16 L, Hgb 9.4 L, Hct 31.6 L, MCV 100.0 H, MCH 29.7, MCHC 29.7 L, RDW Std Deviation 70.8 H, RDW Coeff of Deejay 19.1 H, Plt Count 131 L, MPV 9.7, Immature Gran % (Auto) 0.800, Neut % (Auto) 89.3 H, Lymph % (Auto) 5.9 L, [place] % (Auto) 4.0, Eos % (Auto) 0.0, Baso % (Auto) 0.0, Absolute Neuts (auto) 5.8, Absolute Lymphs (auto) 0.38 L, Nucleated RBC % 0, Differential Comment SCANNED, Hypochromasia 2+, Anisocytosis 3+ 06/13/20 11:16: POC Glucose 334 H Current Medications Acetaminophen (Acetaminophen 325 Mg Tablet) 650 mg PO Q6H PRN PRN PRN Reason: Pain Score 1-10/Temp > 100.7 F Amiodarone HCl (Amiodarone 200 Mg Tablet) 400 mg PO BID [facility] Apixaban (Apixaban 2.5 Mg Tablet) 2.5 mg PO BID [facility] Last Admin: 06/13/20 09:07 Dose: 2.5 mg Documented by: Aspirin (Aspirin 81 Mg Tab.Chew) 81 mg PO DAILY [facility] Last Admin: 06/13/20 09:06 Dose: 81 mg Documented by: Atorvastatin Calcium (Atorvastatin Calcium 20 Mg Tablet) 60 mg PO QHS [facility] Last Admin: 06/12/20 20:27 Dose: 60 mg Documented by: Carvedilol (Carvedilol 6.25 Mg Tablet) 6.25 mg PO BID [facility] Last Admin: 06/13/20 09:06 Dose: 6.25 mg Documented by: Cinacalcet (Cinacalcet Hcl 30 Mg Tablet) 30 mg PO DAILY [facility] Last Admin: 06/13/20 09:07 Dose: 30 mg Documented by: Dexamethasone (Dexamethasone 4 Mg Tablet) 6 mg PO DAILY [facility] Stop: 06/21/20 10:01 Last Admin: 06/13/20 09:12 Dose: 6 mg Documented by: Famotidine (Famotidine 20 Mg Tablet) 20 mg PO DAILY [facility] Last Admin: 06/13/20 09:07 Dose: 20 mg Documented by: Insulin Human Lispro (Insulin Lispro 100 Unit/Ml Insuln.Pen) 0 unit SC [facility]; Protocol Last Admin: 06/13/20 11:17 Dose: 5 u Documented by: Levothyroxine Sodium (Levothyroxine 25 Mcg Tablet) 25 mcg PO DAILY [facility] Last Admin: 06/13/20 09:07 Dose: 25 mcg Documented by: Morphine Sulfate (Morphine 2 Mg/Ml Syringe) 2 mg IV Q3H PRN PRN PRN Reason: Pain Score 6-10 Ondansetron HCl (Ondansetron 4 Mg/2 Ml Vial) 4 mg IV Q8H PRN PRN PRN Reason: NAUSEA/VOMITING Last Admin: 06/12/20 20:32 Dose: 4 mg Documented by: Oxycodone HCl (Oxycodone 5 Mg Tablet) 5 mg PO Q4H PRN PRN PRN Reason: Pain Score 4-5 Pantoprazole Sodium (Pantoprazole Sodium 20 Mg Tablet) 20 mg PO DAILY [facility] Last Admin: 06/13/20 09:07 Dose: 20 mg Documented by: Sevelamer Carbonate (Sevelamer Carbonate 800 Mg Tablet) 800 mg PO TIDCM [facility] Last Admin: 06/13/20 11:18 Dose: 800 mg Documented by: Sodium Chloride (0.9% Saline Lock 10 Ml Syringe) 10 - 40 ml IV UD PRN PRN Reason: SALINE FLUSH Last Admin: 06/13/20 03:49 Dose: 10 ml Documented by: Medical Necessity - Tobacco Use Smoking Status: Former smoker - Patient quit cigarette tobacco usage approximately 35 years prior with prior to his approximately 1 pack/day since he been a teenager. Tobacco Use: Non-smoker Assessment/Plan All Active Problems Acute encephalopathy (Acute) Pneumonia due to COVID-19 virus (Acute) CHF exacerbation (Acute) Atrial flutter, paroxysmal (Acute) Type 2 diabetes mellitus with hypoglycemia (Acute) #1 metabolic encephalopathy from COVID-19 infection-patient's mental status is improved at this point, infectious diseases is participating in his care, he received convalescent plasma this admission #2 ventricular tachycardia-again patient was started on amiodarone, he will need to follow-up as an outpatient and get an echocardiogram #3 hypoxia secondary to #1-we will try to wean the patient's oxygen down #4 end-stage renal disease on dialysis #5 history of alcoholic cardiomyopathy #6 atrial flutter-it is unknown if the patient's ever had this in the past, patient's rate is well controlled on his present medications #7 type 2 diabetes #8 hypothyroidism I do not feel the patient has congestive heart failure at this time Inpatient E&M: [id number] [facility] Hosp L2
--- NOTE | 2020-06-13 15:31 | PN.ID_ITS ---
Patient Problems: Active and Suspected Problems Acute encephalopathy (Acute) Pneumonia due to COVID-19 virus (Acute) CHF exacerbation (Acute) Atrial flutter, paroxysmal (Acute) Type 2 diabetes mellitus with hypoglycemia (Acute) Subjective: Feeling better, no fever, no n/v/d. - Physical Exam Vitals/I&O's: Vital Signs Temp Pulse Resp BP Pulse Ox 97.4 F L 78 18 96/54 L 97 06/13/20 15:05 06/13/20 15:05 06/13/20 15:05 06/13/20 15:05 06/13/20 15:05 Oxygen Flow Rate (L/min) 2 Oxygen Delivery Method Room Air Weight: 68 kg Body Mass Index (BMI) 22.8 Intake and Output for Last 24 Hours 06/11/20 06/12/20 06/13/20 23:59 23:59 23:59 Intake Total 833 / 839.1 1356.06 / 1356.06 Output Total 0 / 0 390 / 390 Balance 833 / 839.1 966.06 / 966.06 General: Alert, Cooperative, No apparent distress Lungs: Diminished Cardiovascular: Regular rate, Regular Rhythm Abdomen: Soft, Non Tender, Non-Distended Skin: No rashes Microbiology Past 72 Hours 06/13/20 06:35 Urine, Random Legionella Antigen - Final 06/13/20 06:35 Urine, Random Streptococcus pneumoniae Antigen (M - Final 06/12/20 09:10 Stool Enteric Bacteriology - Final 06/12/20 09:10 Stool C. difficile DNA Amplification - Final 06/12/20 05:03 Mucosa - Nasopharyngeal Respiratory Panel (PCR) - Final Laboratory Results 06/12/20 16:48: POC Glucose 46 L 06/12/20 17:26: POC Glucose 93 06/12/20 17:45: Glucose 104 06/12/20 20:25: POC Glucose 102 06/13/20 03:51: POC Glucose 205 H 06/13/20 06:40: WBC Cancelled, Corrected WBC Cancelled, RBC Cancelled, Hgb Cancelled, Hct Cancelled, MCV Cancelled, MCH Cancelled, MCHC Cancelled, RDW Std Deviation Cancelled, RDW Coeff of Deejay Cancelled, Plt Count Cancelled, MPV Cancelled, Immature Gran % (Auto) Cancelled, Neut % (Auto) Cancelled, Lymph % (Auto) Cancelled, Atkinson % (Auto) Cancelled, Eos % (Auto) Cancelled, Baso % (Auto) Cancelled, Absolute Neuts (auto) Cancelled, Absolute Lymphs (auto) Cancelled, Total Counted Cancelled, Neutrophils % (Manual) Cancelled, Band Neutrophils % Cancelled, Lymphocytes % (Manual) Cancelled, Monocytes % (Manual) Cancelled, Eosinophils % (Manual) Cancelled, Basophils % (Manual) Cancelled, Metamyelocytes % Cancelled, Myelocytes % Cancelled, Promyelocytes % Cancelled, Blast Cells % Cancelled, Plasma Cell % (Manual) Cancelled, Other Cells % Cancelled, Nucleated RBC % Cancelled, Nucleated RBCs/100 WBC Cancelled, Differential Comment Canc elled, Diff Path Review Cancelled, Hypersegmented Neuts Cancelled, Atypical Lymphocytes Cancelled, Reactive Lymphocytes Cancelled, Smudge Cells Cancelled, Toxic Granulation Cancelled, Toxic Vacuolation Cancelled, Dohle Bodies Cancelled, Deann Rods Cancelled, Platelet Estimate Cancelled, Plt Morphology Comment Cancelled, RBC Morphology Cancelled, Polychromasia Cancelled, Hypochromasia Cancelled, Poikilocytosis Cancelled, Basophilic Stippling Cancelled, Anisocytosis Cancelled, Microcytosis Cancelled, Macrocytosis Cancelled, Spherocytes Cancelled, Sickle Cells Cancelled, Target Cells Cancelled, Tear Drop Cells Cancelled, Ovalocytes Cancelled, Stomatocytes Cancelled, [facility] Bodies Cancelled, [place] Cells Cancelled, Bite Cells Cancelled, Crenated Cell Cancelled, Acanthocytes (Spur) Cancelled, Rouleaux Cancelled, Schistocytes Cancelled 06/13/20 06:40: Sodium Cancelled, Potassium Cancelled, Chloride Cancelled, Carbon Dioxide Cancelled, Anion Gap Cancelled, BUN Cancelled, Creatinine Cancelled, Estim Creat Clear Calc Cancelled, Est GFR (MDRD) Af Amer Cancelled, Est GFR (MDRD) Non-Af Cancelled, BUN/Creatinine Ratio Cancelled, Glucose Cancelled, Calcium Cancelled, Total Bilirubin Cancelled, AST Cancelled, ALT Cancelled, Alkaline Phosphatase Cancelled, Total Protein Cancelled, Albumin Cancelled, Globulin Cancelled, Albumin/Globulin Ratio Cancelled 06/13/20 06:42: POC Glucose 210 H 06/13/20 08:04: Sodium 134 L, Potassium 4.9, Chloride 102, Carbon Dioxide 24.0, Anion Gap 8, BUN 34 H, Creatinine 4.93 H, Estim Creat Clear Calc 13.60, Est GFR (MDRD) Af Amer 15 L, Est GFR (MDRD) Non-Af 13 L, BUN/Creatinine Ratio 6.9 L, Glucose 227 H, Calcium 7.0 L, Total Bilirubin 1.80 H, AST 29, ALT 28, Alkaline Phosphatase 124 H, Total Protein 6.9, Albumin 2.8 L, Globulin 4.1, Albumin/Globulin Ratio 0.7 L 06/13/20 08:04: WBC 6.5, RBC 3.16 L, Hgb 9.4 L, Hct 31.6 L, MCV 100.0 H, MCH 29.7, MCHC 29.7 L, RDW Std Deviation 70.8 H, RDW Coeff of Deejay 19.1 H, Plt Count 131 L, MPV 9.7, Immature Gran % (Auto) 0.800, Neut % (Auto) 89.3 H, Lymph % (Auto) 5.9 L, Atkinson % (Auto) 4.0, Eos % (Auto) 0.0, Baso % (Auto) 0.0, Absolute Neuts (auto) 5.8, Absolute Lymphs (auto) 0.38 L, Nucleated RBC % 0, Differential Comment SCANNED, Hypochromasia 2+, Anisocytosis 3+ 06/13/20 11:16: POC Glucose 334 H Current Medications Acetaminophen (Acetaminophen 325 Mg Tablet) 650 mg PO Q6H PRN PRN PRN Reason: Pain Score 1-10/Temp > 100.7 F Amiodarone HCl (Amiodarone 200 Mg Tablet) 400 mg PO BID [facility] Apixaban (Apixaban 2.5 Mg Tablet) 2.5 mg PO BID [facility] Last Admin: 06/13/20 09:07 Dose: 2.5 mg Documented by: Aspirin (Aspirin 81 Mg Tab.Chew) 81 mg PO DAILY [facility] Last Admin: 06/13/20 09:06 Dose: 81 mg Documented by: Atorvastatin Calcium (Atorvastatin Calcium 20 Mg Tablet) 60 mg PO QHS [facility] Last Admin: 06/12/20 20:27 Dose: 60 mg Documented by: Carvedilol (Carvedilol 6.25 Mg Tablet) 6.25 mg PO BID [facility] Last Admin: 06/13/20 09:06 Dose: 6.25 mg Documented by: Cinacalcet (Cinacalcet Hcl 30 Mg Tablet) 30 mg PO DAILY [facility] Last Admin: 06/13/20 09:07 Dose: 30 mg Documented by: Dexamethasone (Dexamethasone 4 Mg Tablet) 6 mg PO DAILY [facility] Stop: 06/21/20 10:01 Last Admin: 06/13/20 09:12 Dose: 6 mg Documented by: Famotidine (Famotidine 20 Mg Tablet) 20 mg PO DAILY [facility] Last Admin: 06/13/20 09:07 Dose: 20 mg Documented by: Insulin Human Lispro (Insulin Lispro 100 Unit/Ml Insuln.Pen) 0 unit SC [facility]; Protocol Last Admin: 06/13/20 11:17 Dose: 5 u Documented by: Levothyroxine Sodium (Levothyroxine 25 Mcg Tablet) 25 mcg PO DAILY [facility] Last Admin: 06/13/20 09:07 Dose: 25 mcg Documented by: Morphine Sulfate (Morphine 2 Mg/Ml Syringe) 2 mg IV Q3H PRN PRN PRN Reason: Pain Score 6-10 Ondansetron HCl (Ondansetron 4 Mg/2 Ml Vial) 4 mg IV Q8H PRN PRN PRN Reason: NAUSEA/VOMITING Last Admin: 06/12/20 20:32 Dose: 4 mg Documented by: Oxycodone HCl (Oxycodone 5 Mg Tablet) 5 mg PO Q4H PRN PRN PRN Reason: Pain Score 4-5 Pantoprazole Sodium (Pantoprazole Sodium 20 Mg Tablet) 20 mg PO DAILY [facility] Last Admin: 06/13/20 09:07 Dose: 20 mg Documented by: Sevelamer Carbonate (Sevelamer Carbonate 800 Mg Tablet) 800 mg PO TIDCM [facility] Last Admin: 06/13/20 11:18 Dose: 800 mg Documented by: Sodium Chloride (0.9% Saline Lock 10 Ml Syringe) 10 - 40 ml IV UD PRN PRN Reason: SALINE FLUSH Last Admin: 06/13/20 03:49 Dose: 10 ml Documented by: Medical Necessity - Tobacco Use Smoking Status: Former smoker - Patient quit cigarette tobacco usage approximately 35 years prior with prior to his approximately 1 pack/day since he been a teenager. Tobacco Use: Non-smoker Route of nutrition/ use of supplements: [] Nutritional Intake: [] IV Site: [] Trivedi Catheter: [] - Assessment/Plan Antibiotics: [] Assessment/Plan: [] Active and Suspected Problems Acute encephalopathy (Acute) Pneumonia due to COVID-19 virus (Acute) CHF exacerbation (Acute) Atrial flutter, paroxysmal (Acute) Type 2 diabetes mellitus with hypoglycemia (Acute) ESRD with covid and hypoxia - Sx started ~06/05. Cont dex. Got plasma 06/12. Feeling much better. Not candidate for remdesivir due to GFR. Ok for discharge to complete 10 days total of dex. Will follow
[2020-06-13 17:50] LABS: Bedside Glucose 359 mg/dL (70-110)
[2020-06-13] MEDS: Atorvastatin Calcium 20 MG Tablet 60 MG PO (20:51)
[2020-06-13 21:01] LABS: Bedside Glucose 363 mg/dL (70-110)
[2020-06-14] VITALS (13 sets, daily range): BP systolic 85–136; BP diastolic 41–65; PULSE 53–89; RESP 16–19; TEMP 35.9–36.8; O2SAT 93–98
[2020-06-14] MEDS: Insulin Lispro 100 UNIT/ML INSULN.PEN SC ×3 (05:43→16:47)
[2020-06-14 05:56] LABS: Bedside Glucose 238 mg/dL (70-110)
[2020-06-14 06:52] LABS: Absolute Lymphocyte Count 0.47 X10^3/uL (0.83-4.51); Absolute Neutrophil Count 7.4 X10^3/uL (2.0-7.7); Hematocrit 31.4 % (40-54); Hemoglobin 9.7 g/dL (13.0-16.5); Lymphocyte # 0.47 X10^3/ul (4.0); Lymphocyte % 5.7 % (19-41); Mean Corp Hgb Conc 30.9 g/dL (32-36); Mean Corpuscular Hgb 30.2 pg (27.0-32.0); Mean Corpuscular Volume 97.8 fL (80-94); Mean Platelet Vol. 9.7 fl (6.2-12.0); Monocyte# 0.29 X10^3/uL; Monocyte% 3.5 % (0-10); NRBC Flagged by Analyzer 0 % (0-5); Neutrophil # 7.38 X10^3/uL (2.7-7.7); Neutrophil % 90.1 % (47-70); POSITIVE DIFFERENTIAL YES; POSITIVE MORPHOLOGY YES; Platelet Count 146 K/mm3 (150-450); RBC Distribution Width CV 19.1 % (11.6-14.6); RBC Distribution Width SD 68.4 fl (35.1-43.9); Red Blood Count 3.21 M/mm3 (4.6-6.2); White Blood Count 8.2 K/mm3 (4.4-11.0)
[2020-06-14 06:54] LABS: Differential Indicated SCAN CRITERIA MET
[2020-06-14 07:14] LABS: Differential Comment SCANNED; Tear Drop Cell RARE
[2020-06-14 07:20] LABS: ALB/GLOB Ratio 0.8 RATIO (0.9-2.4); AST(SGOT) 74 U/L (15-37); Alanine Aminotransfer ALT/SGPT 62 U/L (16-61); Albumin, Serum 2.8 g/dL (3.2-5.0); Alkaline Phosphatase 115 U/L (45-117); Anion Gap 9 (5-15); BUN 70 mg/dL (7-18); BUN/Creat Ratio 11.1 RATIO (10-20); Calcium,Total 6.8 mg/dL (8.5-10.1); Chloride 101 mmol/L (98-107); EST Glomerular Filtration Rate 9 mL/min (>60); Est Glom Filt Rate - Afr Amer 11 mL/min (>60); Estimated Creatinine Clearance 10.66 ml/min; Globulin 3.5 g/dL (2.2-4.2); Glucose 245 mg/dL (74-106); Potassium 5.1 mmol/L (3.5-5.1); Protein, Total 6.3 g/dL (6.4-8.2); Sodium Level 136 mmol/L (136-145)
[2020-06-14] MEDS: Pantoprazole Sodium 20 MG Tablet PO (08:40)
[2020-06-14] MEDS: dexAMETHasone 4 MG Tablet 6 MG PO (08:40)
[2020-06-14] MEDS: SEVELAMER CARBONATE 800 MG TABLET PO ×3 (08:40→16:47)
[2020-06-14] MEDS: Aspirin 81 MG TAB.CHEW PO (08:40)
[2020-06-14] MEDS: Famotidine 20 MG Tablet PO (08:40)
[2020-06-14] MEDS: Cinacalcet HCl 30 MG Tablet PO (08:41)
[2020-06-14] MEDS: Levothyroxine 25 MCG TABLET PO (08:41)
[2020-06-14] MEDS: APIXABAN 2.5 MG TABLET PO ×2 (08:41→21:27)
--- NOTE | 2020-06-14 09:36 | CASEMGMT ---
Addendum entered by Jami Castle 06/14/20 10:26: Orders faxed to [facility]. NATHALIE will arrange transport once he is done with dialysis. Jami PIÑA Original Note: Patient will be discharged today. NATHALIE called Maria Esther at [facility] and notified her that after dialysis he will return. NATHALIE also called [facility] and put him on the will call list. Plan: d/c back to [facility] Jami PIÑA
--- NOTE | 2020-06-14 09:43 | PCM.TXEXTCAR ---
- Diet 06/12/20 11:58 ADA [Diet: Consistent Carb - Calorie Controlled] Dietary Modifications:: Sodium Restricted Type of Dietary Supplement:: Ensure Enlive Is pt able to select menu?: No Diet Comments: 120mL- chocolate How many daily calories?: 1800 calorie - Routine Orders/Code Status Routine Lab Work: - - Fingerstick blood sugars before meals nightly, cover with Humalog subcu per protocol: 200-250: 5 units subcu, 251-300: 10 units subcu, 301 to 350: 12 units subcu Code Status: Full Code - Wound(s) Left Forearm Wound Type: fistula - Therapies Weight Bearing: Full weight bearing - Problem/Diagnosis (1) Acute encephalopathy Status: Acute (2) Pneumonia due to COVID-19 virus Status: Acute (3) Type 2 diabetes mellitus with hypoglycemia Status: Acute (4) ESRD (end stage renal disease) on dialysis Status: Chronic (5) Hypertension Status: Chronic (6) Hyperlipidemia Status: Chronic (7) Nonsustained ventricular tachycardia Status: Acute (8) Suspected cardiomyopathy Status: Chronic (9) Atrial flutter Status: Acute - Allergies/Procedures Done in Hospital Allergies/Adverse Reactions: Allergies adhesive tape Allergy (Unknown, Verified 06/12/20 04:45) PT UNSURE OF REACTION rosin Allergy (Verified 06/26/16 07:04) Unknown Procedures: Dialysis - Type of Care/Length of Stay Estimated LOS: More Than 30 Days Type of Care Needed: Intermediate Rehab Potential: Good Prognosis: Good - Additional Orders/Day of Discharge H&P will serve as current which was dated: 06/12/20 Day of Discharge: 06/14/20 - Dietary and Speech Recommendations Dietitian Recommendations/Changes: Ensure w/ meals. - Follow Up Care Primary Care Physician: Reginlad Esteves MD [Primary Care Provider] -
--- NOTE | 2020-06-14 10:22 | PN.RENAL_ITS ---
Patient Problems: Active and Suspected Problems Acute encephalopathy (Acute) Pneumonia due to COVID-19 virus (Acute) CHF exacerbation (Acute) Atrial flutter, paroxysmal (Acute) Type 2 diabetes mellitus with hypoglycemia (Acute) Nonsustained ventricular tachycardia (Acute) Atrial flutter (Acute) Subjective: events noticed . Patient developed WCT and started on amiodarone Not seen or examined today to limit exposure to COVID-19 infection and to preserve PPE - Physical Exam Vitals/I&O's: Vital Signs Temp Pulse Resp BP Pulse Ox 97.7 F L 79 18 95/65 95 06/14/20 08:29 06/14/20 08:29 06/14/20 08:29 06/14/20 08:29 06/14/20 08:29 Oxygen Flow Rate (L/min) 2 Oxygen Delivery Method Room Air Weight: 68.1 kg Body Mass Index (BMI) 22.8 Intake and Output for Last 24 Hours 06/12/20 06/13/20 06/14/20 23:59 23:59 23:59 Intake Total 833 / 839.1 1706.06 / 1706.06 800 / 800 Output Total 0 / 0 390 / 390 Balance 833 / 839.1 1316.06 / 1316.06 800 / 800 Microbiology Past 72 Hours 06/13/20 06:35 Urine, Random Legionella Antigen - Final 06/13/20 06:35 Urine, Random Streptococcus pneumoniae Antigen (M - Final 06/12/20 09:10 Stool Enteric Bacteriology - Final 06/12/20 09:10 Stool C. difficile DNA Amplification - Final 06/12/20 05:03 Mucosa - Nasopharyngeal Respiratory Panel (PCR) - Final Laboratory Results 06/13/20 11:16: POC Glucose 334 H 06/13/20 17:44: POC Glucose 359 H 06/13/20 20:47: POC Glucose 363 H 06/14/20 05:41: POC Glucose 238 H 06/14/20 06:36: WBC 8.2, RBC 3.21 L, Hgb 9.7 L, Hct 31.4 L, MCV 97.8 H, MCH 30.2, MCHC 30.9 L, RDW Std Deviation 68.4 H, RDW Coeff of Deejay 19.1 H, Plt Count 146 L, MPV 9.7, Immature Gran % (Auto) 0.700, Neut % (Auto) 90.1 H, Lymph % (Auto) 5.7 L, Patrick % (Auto) 3.5, Eos % (Auto) 0.0, Baso % (Auto) 0.0, Absolute Neuts (auto) 7.4, Absolute Lymphs (auto) 0.47 L, Nucleated RBC % 0, Differential Comment SCANNED, Tear Drop Cells RARE 06/14/20 06:36: Sodium 136, Potassium 5.1, Chloride 101, Carbon Dioxide 26.0, Anion Gap 9, BUN 70 H, Creatinine 6.30 H, Estim Creat Clear Calc 10.66, Est GFR (MDRD) Af Amer 11 L, Est GFR (MDRD) Non-Af 9 L, BUN/Creatinine Ratio 11.1, Glucose 245 H, Calcium 6.8 L, Total Bilirubin 1.70 H, AST 74 H, ALT 62 H, Alkaline Phosphatase 115, Total Protein 6.3 L, Albumin 2.8 L, Globulin 3.5, Albumin/Globulin Ratio 0.8 L Current Medications Acetaminophen (Acetaminophen 325 Mg Tablet) 650 mg PO Q6H PRN PRN PRN Reason: Pain Score 1-10/Temp > 100.7 F Amiodarone HCl (Amiodarone 200 Mg Tablet) 400 mg PO BID [facility] Last Admin: 06/13/20 20:52 Dose: Not Given Documented by: Apixaban (Apixaban 2.5 Mg Tablet) 2.5 mg PO BID [facility] Last Admin: 06/14/20 08:41 Dose: 2.5 mg Documented by: Aspirin (Aspirin 81 Mg Tab.Chew) 81 mg PO DAILY [facility] Last Admin: 06/14/20 08:40 Dose: 81 mg Documented by: Atorvastatin Calcium (Atorvastatin Calcium 20 Mg Tablet) 60 mg PO QHS [facility] Last Admin: 06/13/20 20:51 Dose: 60 mg Documented by: Carvedilol (Carvedilol 6.25 Mg Tablet) 6.25 mg PO BID [facility] Last Admin: 06/13/20 20:51 Dose: 6.25 mg Documented by: Cinacalcet (Cinacalcet Hcl 30 Mg Tablet) 30 mg PO DAILY [facility] Last Admin: 06/14/20 08:41 Dose: 30 mg Documented by: Dexamethasone (Dexamethasone 4 Mg Tablet) 6 mg PO DAILY [facility] Stop: 06/21/20 10:01 Last Admin: 06/14/20 08:40 Dose: 6 mg Documented by: Famotidine (Famotidine 20 Mg Tablet) 20 mg PO DAILY [facility] Last Admin: 06/14/20 08:40 Dose: 20 mg Documented by: Insulin Human Lispro (Insulin Lispro 100 Unit/Ml Insuln.Pen) 0 unit SC [facility]; Protocol Last Admin: 06/14/20 05:43 Dose: 3 u Documented by: Levothyroxine Sodium (Levothyroxine 25 Mcg Tablet) 25 mcg PO DAILY [facility] Last Admin: 06/14/20 08:41 Dose: 25 mcg Documented by: Ondansetron HCl (Ondansetron 4 Mg/2 Ml Vial) 4 mg IV Q8H PRN PRN PRN Reason: NAUSEA/VOMITING Last Admin: 06/12/20 20:32 Dose: 4 mg Documented by: Oxycodone HCl (Oxycodone 5 Mg Tablet) 5 mg PO Q4H PRN PRN PRN Reason: Pain Score 4-5 Pantoprazole Sodium (Pantoprazole Sodium 20 Mg Tablet) 20 mg PO DAILY [facility] Last Admin: 06/14/20 08:40 Dose: 20 mg Documented by: Sevelamer Carbonate (Sevelamer Carbonate 800 Mg Tablet) 800 mg PO TIDCM [facility] Last Admin: 06/14/20 08:40 Dose: 800 mg Documented by: Sodium Chloride (0.9% Saline Lock 10 Ml Syringe) 10 - 40 ml IV UD PRN PRN Reason: SALINE FLUSH Last Admin: 06/13/20 03:49 Dose: 10 ml Documented by: Medical Necessity - Tobacco Use Smoking Status: Former smoker - Patient quit cigarette tobacco usage approximately 35 years prior with prior to his approximately 1 pack/day since he been a teenager. Tobacco Use: Non-smoker Assessment/Plan All Active Problems Acute encephalopathy (Acute) Pneumonia due to COVID-19 virus (Acute) CHF exacerbation (Acute) Atrial flutter, paroxysmal (Acute) Type 2 diabetes mellitus with hypoglycemia (Acute) Nonsustained ventricular tachycardia (Acute) Atrial flutter (Acute) 1- ESRD on TTS HD schedule. primary attraction worker Dr. Salcedo HD session today as per the chronic order 2- Covid -19 pneumonia . received convalescent plasma this admission Will aim UF to his EDW 3- Anemia: Hgb is close to 10 g/dL . will hold on giving AILEEN 4- Arrhythmia: On amiodarone as per the hospitalist service Please call if any question at [phone] Sruthi Mcdermott MD
--- NOTE | 2020-06-14 11:26 | PHA.DC.MR ---
Pharmacy Service has performed discharge medication reconciliation for this patient. The patient's discharge medication list was reviewed for discrepancies and discrepancies were resolved. Home Medications Aspirin [Aspirin, Baby] 81 mg PO DAILY@0800 11/25/13 Docusate Sodium [Colace] 100 mg PO BID 11/25/13 Gabapentin [Neurontin] 200 mg PO DAILY 11/25/13 Isosorbide DN [Isordil] 10 mg PO BID 11/25/13 Levothyroxine [Synthroid] 25 mcg PO DAILY 11/25/13 Omeprazole [Prilosec] 20 mg PO DAILY 11/25/13 Vitamin B Complex Vit C No.3 [B Complex with Vitamin C] 1 each PO DAILY 11/25/13 Atorvastatin Calcium [Lipitor] 60 mg PO QHS 06/26/16 Carvedilol [Coreg (Beta Cheryl)] 6.25 mg PO BID 06/26/16 Cinacalcet HCl [Sensipar] 30 mg PO DAILY 06/26/16 Ergocalciferol [Vitamin D] 50,000 unit PO DAILY 06/26/16 Famotidine 20 mg PO DAILY 06/12/20 Sevelamer Carbonate [Renvela] 800 mg PO TID 06/12/20 Amiodarone HCl [Cordarone] 400 mg PO BID #1 tab 06/14/20 Apixaban [Eliquis] 2.5 mg PO BID tab 06/14/20 Dexamethasone [Decadron] 6 mg PO DAILY #1 tab 06/14/20
[2020-06-14 11:30] LABS: Bedside Glucose 304 mg/dL (70-110)
--- NOTE | 2020-06-14 15:43 | CASEMGMT ---
NATHALIE called Maria Esther at [facility] and let her know patient will still be coming back today. He is getting dialysis a little later than we thought. NATHALIE called patient and asked if he would like NATHALIE to call his sister and let her know he is heading back to [facility] today. He said she already knows. NATHALIE put a green sheet on patient's packet. 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 Plan: d/c back to [facility] under skilled level of care. [facility] will transport patient via wheelchair. Jami PIÑA
[2020-06-14 17:15] LABS: Bedside Glucose 209 mg/dL (70-110)
--- NOTE | 2020-06-14 20:23 | DIALYSIS ---
Hemodialysis complete. 3.5 hour run, 2k bath, net fluid removed = 1400 ml. Patient tolerated HD tx well. Left forearm AVF: forearm swollen and bruised from prior infiltration. Thrill and bruit present, needle site pressure held 10 min each, hemostasis achieved. Report given to primary RNAnn Marie.
[2020-06-14] MEDS: Amiodarone 200 MG Tablet 400 MG PO (21:26)
[2020-06-14] MEDS: Carvedilol 6.25 MG Tablet PO (21:26)
[2020-06-14] MEDS: Atorvastatin Calcium 20 MG Tablet 60 MG PO (21:31)
[2020-06-14 22:50] LABS: Bedside Glucose 224 mg/dL (70-110)
--- NOTE | 2020-06-25 13:26 | DS.PCM_ITS ---
Discharge Date and Diagnosis - Problem List Patient Problems: Active and Suspected Problems Acute encephalopathy (Acute) Pneumonia due to COVID-19 virus (Acute) CHF exacerbation (Acute) Atrial flutter, paroxysmal (Acute) Type 2 diabetes mellitus with hypoglycemia (Acute) Nonsustained ventricular tachycardia (Acute) Atrial flutter (Acute) Date of Admission: 06/12/20 Date of Discharge: 06/14/20 - Primary Discharge Diagnosis Acute Problems: Active Problems #1 metabolic encephalopathy from COVID-19 infection #2 ventricular tachycardia-nonsustained #3 hypoxia secondary to #1 #4 end-stage renal disease on dialysis #5 history of alcoholic cardiomyopathy #6 atrial flutter #7 type 2 diabetes #8 hypothyroidism - Secondary Discharge Diagnosis Chronic Problems: Chronic Problems ESRD (end stage renal disease) on dialysis (Chronic) Hypertension (Chronic) Hyperlipidemia (Chronic) Hypothyroidism (Chronic) Tobacco use (Chronic) Alzheimer's dementia (Chronic) History of alcohol abuse (Chronic) Suspected cardiomyopathy (Chronic) Hospital Course and Treatment Operations: None Procedures: Dialysis Summary of Care Provided: The patient is a 69 year old M who was directly admitted to PCU from an outside emergency room with a history of recent COVID-19 testing 2 days prior and was noted to be encephalopathic at his residential facility. Due to the lack of Covid beds in local hospitals, patient was transferred to PCU. Upon presentation to [facility], patient's mental status returned to his documented baseline and he appropriately answered questions. Patient was initially thought to have been and decompensated CHF, this examiner did not agree with that assessment and he was admitted with acute encephalopathy felt to be secondary to COVID-19. Patient had end-stage renal disease and required hemodialysis, nephrology saw the patient in consultation and he was seen in consultation by infectious diseases. Patient was placed on dexamethasone and he was given convalescent plasma, he was not felt to be a candidate for remdesivir due to his end-stage renal disease. Patient had an episode of what appeared to be nonsustained ventricular tachycardia, I talked briefly with cardiology by phone who advised placing the patient on amiodarone, cardiology did not recommend obtaining an echocardiogram until the patient was out of quarantine for [id number] did not feel that obtaining an echocardiogram what and any information that would change treatment of his nonsustained ventricular tachycardia, this echocardiogram would have to be done when the patient returned to his extended care facility and was out of quarantine. On 06/14/2020, patient was seen and examined: On examination. Vital signs as documented. Skin warm and dry and without overt rashes. Neck without JVD, neck was supple, trachea midline, thyroid was normal. Lungs clear bilaterally, normal air movement was noted. Heart exam notable for irregular rhythm, normal sounds and absence of murmurs, rubs or gallops. Abdomen unremarkable and without evidence of organomegaly, masses, or abdominal aortic enlargement. Bowel sounds are present, abdomen is not distended. Extremities nonedematous, no cyanosis was noted, no clubbing was noted. Neuro: Cranial nerves II through XII are grossly intact, no focal motor deficits were noted, sensation to light touch and pinprick intact, motor exam 5/5 throughout. Psych: Patient is alert and appropriate Patient was discharged back to his residential facility in stable condition on 06/14/2020 Patient Problems: Active and Suspected Problems Acute encephalopathy (Acute) Pneumonia due to COVID-19 virus (Acute) CHF exacerbation (Acute) Atrial flutter, paroxysmal (Acute) Type 2 diabetes mellitus with hypoglycemia (Acute) Nonsustained ventricular tachycardia (Acute) Atrial flutter (Acute) - Physical Exam Vitals/I&O's: Vital Signs Temp Pulse Resp BP Pulse Ox 97.7 F L 70 19 H 136/64 H 95 06/14/20 21:09 06/14/20 21:09 06/14/20 21:09 06/14/20 21:09 06/14/20 21:09 Oxygen Flow Rate (L/min) 2 Oxygen Delivery Method Room Air Weight: 68.1 kg Body Mass Index (BMI) 22.8 Home Medications: Medications to take at Discharge Aspirin [Aspirin, Baby] 81 mg PO DAILY@0800 11/25/13 Docusate Sodium [Colace] 100 mg PO BID 11/25/13 Gabapentin [Neurontin] 200 mg PO DAILY 11/25/13 Isosorbide DN [Isordil] 10 mg PO BID 11/25/13 Levothyroxine [Synthroid] 25 mcg PO DAILY 11/25/13 Omeprazole [Prilosec] 20 mg PO DAILY 11/25/13 Vitamin B Complex Vit C No.3 [B Complex with Vitamin C] 1 each PO DAILY 11/25/13 Atorvastatin Calcium [Lipitor] 60 mg PO QHS 06/26/16 Carvedilol [Coreg (Beta Cheryl)] 6.25 mg PO BID 06/26/16 Cinacalcet HCl [Sensipar] 30 mg PO DAILY 06/26/16 Ergocalciferol [Vitamin D] 50,000 unit PO DAILY 06/26/16 Famotidine 20 mg PO DAILY 06/12/20 Sevelamer Carbonate [Renvela] 800 mg PO TID 06/12/20 Amiodarone HCl [Cordarone] 400 mg PO BID #1 tab 06/14/20 Apixaban [Eliquis] 2.5 mg PO BID tab 06/14/20 Dexamethasone [Decadron] 6 mg PO DAILY #1 tab 06/14/20 Following Prescriptions Were Given to Patient: Amiodarone HCl [Cordarone] 400 mg PO BID #1 tab Dexamethasone [Decadron] 6 mg PO DAILY #1 tab Primary Care Physician: Reginald Esteves MD [Primary Care Provider] - Disposition: Retirement facility Minutes spent on discharge:: 32 Patient Condition:: Stable Medical Necessity - Tobacco Use Smoking Status: Former smoker - Patient quit cigarette tobacco usage approximately 35 years prior with prior to his approximately 1 pack/day since he been a teenager. Tobacco Use: Non-smoker Meaningful Use Info Meaningful Use Diagnoses (Choose all that apply): None applicable Inpatient E&M: 52156 [facility]
== END 2020-06-14 22:33 | disposition skilled nursing facility (03) | DRG 177 ==
PROVIDERS: Admitting Provider Family Medicine; PCP Internal Medicine; Visit Provider Internal Medicine
DX: U07.1 COVID-19 (principal); G93.41 Metabolic encephalopathy; N18.6 End stage renal disease; J12.89 Other viral pneumonia; I47.2 Ventricular tachycardia; I48.92 Unspecified atrial flutter; I42.6 Alcoholic cardiomyopathy; I12.0 Hypertensive chronic kidney disease with stage 5 chronic kidney disease or end stage renal disease; D63.1 Anemia in chronic kidney disease; R09.02 Hypoxemia; E03.9 Hypothyroidism, unspecified; E11.22 Type 2 diabetes mellitus with diabetic chronic kidney disease; E11.649 Type 2 diabetes mellitus with hypoglycemia without coma; E78.5 Hyperlipidemia, unspecified; G30.9 Alzheimer's disease, unspecified; F02.80 Dementia in other diseases classified elsewhere, unspecified severity, without behavioral disturbance, psychotic disturbance, mood disturbance, and anxiety; Z99.2 Dependence on renal dialysis; Z79.4 Long term (current) use of insulin; Z79.890 Hormone replacement therapy; Z79.899 Other long term (current) drug therapy; Z87.891 Personal history of nicotine dependence; Z86.59 Personal history of other mental and behavioral disorders
CPT/HCPCS: 36415; 71045; 80053; 82728; 82947; 82962; 83036; 83615; 83735; 84145; 84439; 84443; 84484; 85025; 85379; 86140; 86900; 86901; 87449; 87493; 87506; 87633; 90937; 93005; 97162; 97166; 97802; 99251; J7030; J7040; J7050; A4216; G0257; G0463; J1940; J2405

== ENCOUNTER 2020-07-25 22:16 | Observation (INO) | payer MEDICARE, MEDICAID, SELFPAY ==
[2020-06-12 02:33] VITALS: BMI 22.8
[2020-07-26] VITALS (9 sets, daily range): BP systolic 93–95; BP diastolic 43–57; PULSE 57–100; RESP 16–20; TEMP 36.3–36.6; O2SAT 92–99; BMI 23.3; BMI 23.4
--- NOTE | 2020-07-26 01:54 | EKG12_ITS ---
Test Reason : DYSRHYTHMIA Blood Pressure : / mmHG Vent. Rate : 085 BPM Atrial Rate : 227 BPM P-R Int : 000 ms QRS Dur : 144 ms QT Int : 464 ms P-R-T Axes : 000 -65 134 degrees QTc Int : 552 ms Atrial flutter with variable A-V block Left axis deviation Non-specific intra-ventricular conduction block T wave abnormality, consider lateral ischemia Abnormal ECG When compared with ECG of 13-JUN-2020 05:22, T wave inversion no longer evident in Inferior leads T wave inversion no longer evident in Anterior leads Confirmed by NESTOR HAMMER, RANDY ([id number]), editor at large BRITTANY GERARDO ([id number]) on 07/30/2020 9:37:15 AM Referred By: ZUHAIR Confirmed By:ANGEL BAEZ MD
--- NOTE | 2020-07-26 01:57 | NURSING ---
Respiratory called for EKG for possible rhythm changes noticed by squad personnel.
--- NOTE | 2020-07-26 02:01 | HP.PCM_ITS ---
Problem List (1) Diarrhea Status: Acute Qualifiers: Diarrhea type: unspecified type Qualified Code(s): R19.7 - Diarrhea, unspecified (2) Acute encephalopathy Status: Acute (3) Pneumonia due to COVID-19 virus Status: Acute (4) Atrial flutter, paroxysmal Status: Resolved (5) Type 2 diabetes mellitus with hypoglycemia Status: Chronic Qualifiers: Diabetes mellitus chcf insulin use: with terminal computer operator use Diabetes mellitus complication detail: without coma Qualified Code(s): E11.649 - Type 2 diabetes mellitus with hypoglycemia without coma; Z79.4 - FPC (current) use of insulin (6) ESRD (end stage renal disease) on dialysis Status: Chronic (7) Hypertension Status: Chronic Qualifiers: Hypertension type: essential hypertension Qualified Code(s): I10 - Essential (primary) hypertension (8) Hyperlipidemia Status: Chronic Qualifiers: Hyperlipidemia type: unspecified Qualified Code(s): E78.5 - Hyperlipidemia, unspecified (9) Hypothyroidism Status: Chronic Qualifiers: Hypothyroidism type: unspecified Qualified Code(s): E03.9 - Hypothyroidism, unspecified (10) Tobacco use Status: Chronic (11) Alzheimer's dementia Status: Chronic Qualifiers: Alzheimer's disease onset: unspecified onset Dementia behavioral disturbance: without behavioral disturbance Qualified Code(s): G30.9 - Alzheimer's disease, unspecified; F02.80 - Dementia in other diseases classified elsewhere without behavioral disturbance (12) History of alcohol abuse Status: Chronic (13) Nonsustained ventricular tachycardia Status: Chronic History of Present Illness Date of Admission: 07/26/20 Chief Complaint: Confusion, diarrhea The patient is a 69 y/o M from SNF w/ PMHx: Atrial Flutter, Former EtOH Abuse, Alzheimer's dementia with intermittent periods of confusion, GERD, Diastolic CHF, ESRD on HD T, Th, Sat ([place]), HTN, HLD, Hypothyroidism, Diabetes mellitus type II who presents to the [facility] as direct admission from [facility] ED on 07/15/20 with history of recently increased confusion, fatigued, malaise, diarrhea intermittently with unclear number of times daily with referral from the SNF to the OS ED as noted. Patient per report with ongoing issues with low BP which was noted during prior admission, recently started on midodrine at his facility with low normal BP for patient systolics in the 80s. Handed off telemetry strip per EMS with ? 2nd degree, pending EKG per [facility] upon admission. Work-up in the OSH ED included: VS: 19:15 T 37.1 BP 85/57, RR 17, HR 78, 91-100% on RA CBC: WBC 6.5, Hgb 9.6 (Prior 06/15 10.8), plts 233 without marked shift CMP: Na 137, K 5.0, Chl 96, CO2 33, BUN/Cr 29/4.3 (Prior 06/15 45/6.4), glucose 132, T Bili 1.1, AST/ALT 21/14, Alk phos 117 Fecal occult blood: positive Lactic acid: 1.2 NH 42 EKG: SR without acute evidence of ischemia with nonspecific changes Cdiff stool: negative COVID PCR: negative Troponin: 0.09 (similar to prior) Medications: CXR no acute cardiopulmonary findings. CT head without acute intracranial findings, L occiptal encephalomalacia Medications: 500 ml NS Past Medical History Past Medical History (Chronic Problems): Chronic Problems Type 2 diabetes mellitus with hypoglycemia (Chronic) ESRD (end stage renal disease) on dialysis (Chronic) Hypertension (Chronic) Hyperlipidemia (Chronic) Hypothyroidism (Chronic) Tobacco use (Chronic) Alzheimer's dementia (Chronic) History of alcohol abuse (Chronic) Nonsustained ventricular tachycardia (Chronic) Suspected cardiomyopathy (Chronic) Allergies adhesive tape Allergy (Unknown, Verified 06/12/20 04:45) PT UNSURE OF REACTION rosin Allergy (Verified 06/26/16 07:04) Unknown Home Medications: Ambulatory Orders Medication Instructions Recorded Aspirin [Aspirin, Baby] 81 mg PO DAILY@0800 11/25/13 Docusate Sodium [Colace] 100 mg PO BID 11/25/13 Gabapentin [Neurontin] 200 mg PO DAILY 11/25/13 Isosorbide DN [Isordil] 10 mg PO BID 11/25/13 Levothyroxine [Synthroid] 25 mcg PO DAILY 11/25/13 Omeprazole [Prilosec] 20 mg PO DAILY 11/25/13 Vitamin B Complex Vit C No.3 [B 1 each PO DAILY 11/25/13 Complex with Vitamin C] Atorvastatin Calcium [Lipitor] 60 mg PO QHS 06/26/16 Carvedilol [Coreg (Beta Cheryl)] 6.25 mg PO BID 06/26/16 Cinacalcet HCl [Sensipar] 30 mg PO DAILY 06/26/16 Ergocalciferol [Vitamin D] 50,000 unit PO DAILY 06/26/16 Famotidine 20 mg PO DAILY 06/12/20 Sevelamer Carbonate [Renvela] 800 mg PO TID 06/12/20 Amiodarone HCl [Cordarone] 400 mg PO BID #1 tab 06/14/20 Apixaban [Eliquis] 2.5 mg PO BID tab 06/14/20 Dexamethasone [Decadron] 6 mg PO DAILY #1 tab 06/14/20 Surgical History: - - Fistula placement. Psychiatric History: No pertinent psych hx Lives: Correction Smoking Status: Former smoker - Patient quit cigarette tobacco usage approximately 35 years prior with prior to his approximately 1 pack/day since he been a teenager. Tobacco Use: Non-smoker Alcohol: Sober Drugs: None - *Family History Maternal History Items: Cancer - Mother with history of cancer, unclear type. Paternal History Items: Heart Disease Review of Systems Constitutional: Reports: Weakness, Fatigue. Denies: Anorexia, Chills, Fever, Malaise, Weight Change HEENT: Denies: Head Aches, Sinus Congestion, Sinus Drainage Cardiovascular: Denies: Chest Pain, Palpitations Respiratory: Denies: Cough, Shortness of breath at rest, Sputum production Gastrointestinal: Reports: Diarrhea. Denies: Abdominal Pain, Nausea, Vomiting Genitourinary: Denies: Dysuria Musculoskeletal: Reports: Back Pain, Joint Pain. Denies: Joint Tenderness Skin: Denies: Rash, Wounds Neurological: Reports: Confusion. Denies: Focal weakness, Numbness, Tingling Psychiatric: Denies: Anxiety, Depression, Homicidal Ideations, Suicidal Ideations Hematologic/ Lymphatic: Reports: Anemia, Easy Bruising, Easy Bleeding VTE Information - Inpt Only VTE Present on Admission: No VTE Mechan Device Prophylaxis: SCD's VTE Pharm Prophylaxis ordered?: Yes Subjective: Seated upright in the MS bed, fatigued appearing otherwise no acute distress. Objective: Physical Examination: General: awake, alert, oriented including self, place and some recent events, underlying dementia, remains cooperative, seated upright in MS bed in no manuel arent distress. Skin: normal color, turgor, no icterus, cyanosis except noted BL LE stasis changes, occasional abrasion to extremities. HEENT: AT/NC, EOMI, PERRLA, mildly dry MM, no carotid bruits or JVD noted. Lungs: Diminished BS, > bases, moderate effort, no rales, ronchi or wheezing. Heart: Regular rate and rhythm; no gallop, rub audible. Abdomen: soft, NTTP, ND, normal BS, no HSM. Extremities: no cyanosis or clubbing, BL LE chronic pain with palpation, stasis changes, LUE fistula with thrill, mild. Neurological: patient awake, alert, oriented as noted; cognitive function decreased baseline with underlying dementia, currently appears similar to prior and intact; pupils equally reactive to light and accomodation; cranial nerves II-XII grossly normal, moving all 4 extremities, no focal deficits, strength moderately globally decreased to severely globally decreased. Psychiatric: affect appears fatigued and mildly flat otherwise normal, no acute evidence of depressive or anxiety feelings. - Physical Exam Vitals/I&O's: Body Mass Index (BMI) 22.8 Current Medications Acetaminophen (Acetaminophen 325 Mg Tablet) 650 mg PO Q6H PRN PRN PRN Reason: Pain Score 1-10/Temp > 100.7 F Al Hydroxide/Mg Hydroxide (Mag Hydrox/Al Hydrox/Simeth 30 Ml Udc) 30 ml PO Q6H PRN PRN PRN Reason: Gastric Burning Albuterol Sulfate (Albuterol 2.5 Mg/3 Ml Vial.Neb.) 2.5 mg INHALATION Q2H PRN PRN PRN Reason: Dyspnea, wheezing Amiodarone HCl (Amiodarone 200 Mg Tablet) 400 mg PO BID [place] Apixaban (Apixaban 2.5 Mg Tablet) 2.5 mg PO BID COUNT INCLUDES THE [facility] Aspirin (Aspirin 81 Mg Tab.Chew) 81 mg PO DAILY@0800 COUNT INCLUDES THE [facility] Atorvastatin Calcium (Atorvastatin Calcium 20 Mg Tablet) 60 mg PO QHS [place] Carvedilol (Carvedilol 6.25 Mg Tablet) 6.25 mg PO BID [place] Cinacalcet (Cinacalcet Hcl 30 Mg Tablet) 30 mg PO DAILY [place] Ergocalciferol (Ergocalciferol 50,000 Unit Capsule) 50,000 unit PO DAILY [place] Gabapentin (Gabapentin 100 Mg Capsule) 200 mg PO DAILY [place] Guaifenesin (Guaifenesin 10 Ml Udc (200mg/10ml)) 20 ml PO Q4H PRN PRN PRN Reason: COUGH Hydralazine HCl (Hydralazine 20 Mg/Ml Vial) 10 mg IV Q4H PRN PRN PRN Reason: SBP > 160 Sodium Chloride () 1,000 mls @ 100 mls/hr IV .Q10H COUNT INCLUDES THE [facility] Insulin Human Lispro (Insulin Lispro 100 Unit/Ml Insuln.Pen) 0 unit SC ACHS [place]; Protocol Isosorbide Dinitrate (Isosorbide Dn 10 Mg Tablet) 10 mg PO BID COUNT INCLUDES THE [facility] Levothyroxine Sodium (Levothyroxine 25 Mcg Tablet) 25 mcg PO DAILY@0600 COUNT INCLUDES THE [facility] Melatonin (Melatonin 3 Mg Tablet) 3 mg PO QHS PRN PRN PRN Reason: INSOMNIA Nitroglycerin (Nitroglycerin (Inpatient Use) 0.4 Mg Tab.Subl) 0.4 mg SUBLINGUAL Q5M PRN PRN Reason: CARDIAC/CHEST PAIN Ondansetron HCl (Ondansetron 4 Mg/2 Ml Vial) 4 mg IV Q8H PRN PRN PRN Reason: NAUSEA/VOMITING Pantoprazole Sodium (Pantoprazole Sodium 40 Mg Tablet) 40 mg PO BID COUNT INCLUDES THE [facility] Prochlorperazine Edisylate (Prochlorperazine 10 Mg/2 Ml Vial) 5 mg IV Q4H PRN PRN PRN Reason: Breakthrough nausea/vomiting Sevelamer Carbonate (Sevelamer Carbonate 800 Mg Tablet) 800 mg PO TIDCM COUNT INCLUDES THE [facility] Throat Lozenges (Benzocaine/Menthol 1 Lozenge) 1 lozenge MUCOUS MEM Q2H PRN PRN PRN Reason: SORE THROAT Assessment/Plan All Active Problems Acute encephalopathy (Acute) Pneumonia due to COVID-19 virus (Acute) CHF exacerbation (Acute) Atrial flutter, paroxysmal (Resolved) Atrial flutter (Acute) Diarrhea (Acute) The patient is a 69 y/o M from w/ PMHx: Atrial Flutter, Former EtOH Abuse, Alzheimer's dementia with intermittent periods of confusion, GERD, Diastolic CHF, ESRD on HD T, , Sat (), HTN, HLD, Hypothyroidism, Diabetes mellitus type II who presents to the [facility] as direct admission from [facility] ED on 07/15/20 with history of recently increased confusion, fatigued, malaise, diarrhea intermittently. 1. Acute Encephalopathy, Multifactorial, secondary to GI losses with Recurrent Diarrhea: Patient with recent 06/15 admission with COVID at that time, treated with decadron, plasma on 06/12/2020, not an remdesivir candidate secondary to GFR eventually discharged with resolution of GI symptoms, will admit to medical surgical floor, judiciously hydrate, C. difficile testing performed at outside facility negative, will obtain stool culture and also if unremarkable would initiate antidiarrheal regimen to assist with avoidance of further GI losses, if necessary may consider abdominal imaging, plan repeat CBC, CMP in AM, guaiac performed at outside facility noted to be positive however with recurrent diarrhea could certainly just have small amount of blood secondary to irritation, will cycle H&H's to be cautious especially given patient on Eliquis regimen for atrial flutter as well as aspirin therapy, if necessary may hold and would plan surgery consultation if appropriate. 2. 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 3. Atrial flutter: EKG at outside facility was sinus rhythm with nonspecific changes, troponin at outside facility stable noted to be 0.09, will continue patient home Eliquis, amiodarone, Coreg regimen. 4. Diabetes mellitus type II with history of symptomatic hypoglycemia: Hemoglobin A1c on 06/12/2020 6.7%, not on any regimen, previous episodes of hypoglycemia, will maintain on renal/cardiac/ADA diet with Accu-Cheks with sliding scale to be cautious. 5. ESRD: Will continue patient HD regimen T, , Thu, consult Nephrology, Dr. Mcdermott, continue patient PhosLo and Sensipar regimen. 6. Hypertension, history of: Patient with low blood pressures normally, recently initiated on midodrine, worse around dialysis which is expected and likely associate with patient's confused episodes, will continue patient regimen including isosorbide, Coreg with very strict hold parameters and likely expect eventual need for discontinuation of isosorbide. 7. Hyperlipidemia: Continue home statin regimen. 8. Hypothyroidism: Continue home synthroid regimen. 9. Alzheimer's dementia with unclear behavioral disturbance history: Complicates presentation, [facility] care [facility], maintain on fall precautions, PT/OT/case management for discharge planning. 10. Former alcohol abuse: Encouraged continued avoidance of alcohol although patient previously admitting he will occasionally have a beer, previous skilled facility per discussion with patient had not allowed any alcohol intake. 11. DVT prophylaxis: SCDs, eliquis regimen. 12. CODE status: Patient BIRDIE is his sister Junie and living will is currently in place. Again, discussed CODE status at length including difference between FULL code, DNR-CCA and DNR-CC status. Following discussions about the differences in these status, requested continued Full Code status noting however if clinically worsened and required prolonged life support would want to transition to CC status. Advanced Care Planning Face to Face Time: 16 minutes. OBSV E&M: 33757 Initial observation care L3 Procedures: 25588 Advncd Care Plan 30 Min
[2020-07-26] MEDS: 0.9% Normal Saline 1,000 ML 100 ML IV (02:48)
[2020-07-26] MEDS: Pantoprazole Sodium 40 MG Tablet PO ×2 (02:53→08:03)
[2020-07-26] MEDS: 0.9% Saline Lock 10 ML Syringe IV ×2 (02:55→10:23)
[2020-07-26 02:57] LABS: Absolute Lymphocyte Count 0.51 X10^3/uL (0.83-4.51); Absolute Neutrophil Count 4.1 X10^3/uL (2.0-7.7); Basophil# 0.02 X10^3/uL; Basophil% 0.4 % (0-1); Eosinophil# 0.18 X10^3/uL; Eosinophils% 3.2 % (0-5); Hematocrit 34.4 % (40-54); Hemoglobin 9.9 g/dL (13.0-16.5); Lymphocyte # 0.51 X10^3/ul (4.0); Mean Corp Hgb Conc 28.8 g/dL (32-36); Mean Corpuscular Hgb 29.4 pg (27.0-32.0); Mean Corpuscular Volume 102.1 fL (80-94); Mean Platelet Vol. 8.9 fl (6.2-12.0); Monocyte# 0.85 X10^3/uL; NRBC Flagged by Analyzer 0 % (0-5); Neutrophil # 4.07 X10^3/uL (2.7-7.7); Neutrophil % 71.9 % (47-70); POSITIVE DIFFERENTIAL YES; POSITIVE MORPHOLOGY YES; Platelet Count 223 K/mm3 (150-450); RBC Distribution Width CV 19.1 % (11.6-14.6); RBC Distribution Width SD 71.8 fl (35.1-43.9); Red Blood Count 3.37 M/mm3 (4.6-6.2); White Blood Count 5.7 K/mm3 (4.4-11.0)
[2020-07-26 03:14] LABS: Magnesium 2.5 mg/dL (1.6-2.6)
[2020-07-26 03:16] LABS: ALB/GLOB Ratio 0.7 RATIO (0.9-2.4); AST(SGOT) 18 U/L (15-37); Alanine Aminotransfer ALT/SGPT 20 U/L (16-61); Albumin, Serum 2.7 g/dL (3.2-5.0); Alkaline Phosphatase 127 U/L (45-117); Anion Gap 7 (5-15); BUN 36 mg/dL (7-18); BUN/Creat Ratio 7.2 RATIO (10-20); Calcium,Total 8.3 mg/dL (8.5-10.1); Chloride 100 mmol/L (98-107); EST Glomerular Filtration Rate 12 mL/min (>60); Est Glom Filt Rate - Afr Amer 15 mL/min (>60); Globulin 3.7 g/dL (2.2-4.2); Glucose 113 mg/dL (74-106); Potassium 5.2 mmol/L (3.5-5.1); Protein, Total 6.4 g/dL (6.4-8.2); Sodium Level 137 mmol/L (136-145)
[2020-07-26 03:22] LABS: Procalcitonin 1.01 ng/mL (0.00-0.09)
[2020-07-26 03:24] LABS: Differential Indicated SCAN CRITERIA MET
[2020-07-26] MEDS: Levothyroxine 25 MCG TABLET PO (05:49)
--- NOTE | 2020-07-26 06:50 | NURSING ---
Sadi Davison called for an update on this pt.
[2020-07-26 06:55] LABS: Bedside Glucose 114 mg/dL (70-110)
[2020-07-26] MEDS: Aspirin 81 MG TAB.CHEW PO (08:01)
[2020-07-26] MEDS: Amiodarone 200 MG Tablet PO (08:02)
[2020-07-26] MEDS: SEVELAMER CARBONATE 800 MG TABLET PO ×2 (08:02→16:04)
[2020-07-26] MEDS: Gabapentin 100 MG Capsule 200 MG PO (08:03)
[2020-07-26] MEDS: APIXABAN 2.5 MG TABLET PO (08:03)
[2020-07-26] MEDS: Glucerna Shake 120 ML LIQUID PO (08:14)
[2020-07-26] MEDS: Carvedilol 6.25 MG Tablet PO (08:15)
--- NOTE | 2020-07-26 08:37 | TREXTCAR_ITS ---
- Diet 07/25/20 22:17 Diet: Consistent Carb - Calorie Controlled Food consistency:: Regular Liquid Consistency:: Regular/Thin How many daily calories?: 1800 calorie - Routine Orders/Code Status Routine Lab Work: BMP - every Thursday Code Status: Full Code - Wound(s) bilateral lower legs Wound Type: Abrasion - Therapies Physical Therapy: Eval and Treat Occupational Therapy: Eval and Treat - Allergies/Procedures Done in Hospital Allergies/Adverse Reactions: Allergies adhesive tape Allergy (Unknown, Verified 06/12/20 04:45) PT UNSURE OF REACTION rosin Allergy (Verified 06/26/16 07:04) Unknown Procedures: Dialysis - Type of Care/Length of Stay Estimated LOS: More Than 30 Days Type of Care Needed: Correction/Assisted Living Rehab Potential: Fair Prognosis: Fair - Additional Orders/Day of Discharge H&P will serve as current which was dated: 07/26/20 Day of Discharge: 07/26/20 - Follow Up Care Primary Care Physician: Reginald Esteves MD [Primary Care Provider] - Within 2 Weeks Please Follow Up With: Hemodialysis When: every , , Thursday
--- NOTE | 2020-07-26 08:40 | DS.PCM_ITS ---
Discharge Date and Diagnosis - Problem List Patient Problems: Active and Suspected Problems Acute encephalopathy (Acute) Diarrhea (Acute) Date of Admission: 07/26/20 Date of Discharge: 07/26/20 - Primary Discharge Diagnosis Acute Problems: Active Problems Acute encephalopathy (Acute) Pneumonia due to COVID-19 virus (Acute) Diarrhea (Acute) - Secondary Discharge Diagnosis Chronic Problems: Chronic Problems Type 2 diabetes mellitus with hypoglycemia (Chronic) ESRD (end stage renal disease) on dialysis (Chronic) Hypertension (Chronic) Hyperlipidemia (Chronic) Hypothyroidism (Chronic) Tobacco use (Chronic) Alzheimer's dementia (Chronic) History of alcohol abuse (Chronic) Nonsustained ventricular tachycardia (Chronic) Suspected cardiomyopathy (Chronic) Hospital Course and Treatment Nephrology Operations: None Procedures: None Summary of Care Provided: The patient is a 70 year old M presents with confusion and diarrhea. [facility] was having issues with confusion, fatigue and diarrhea. Pt having low blood pressor and recently started on midodrine. Should be noted that patient has had issues with low blood pressure here during his most recent admission here back in May. I went to evaluate patient later on in the day and the patient was not having further diarrhea and was fine otherwise. Patient was making sarcastic jokes and seemed very jovial. Patient feels ready to eat. Patient be monitored here and if he does well and does well after his hemodialysis and he will be [facility] the [facility]. In regards to the patient's confusion is unclear what was contributing to it as it does not appear that he is on any medications that would contribute. Also for the patient's diarrhea is unclear what may be causing that but he states that it does not occur often so it seems less likely that this is diabetic gastroparesis. Patient was checked for C. difficile prior and that was negative. Would hold off on the patient's docusate, however. Given the patient's low blood pressure, would recommend discontinuing the isosorbide. If patient is able to maintain good blood pressures then his midodrine could be potentially discontinued at a later point. [] Patient Problems: Active and Suspected Problems Acute encephalopathy (Acute) Diarrhea (Acute) - Physical Exam Vitals/I&O's: Vital Signs Temp Pulse Resp BP Pulse Ox 36.6 C 100 18 95/49 L 93 07/26/20 06:34 07/26/20 07:51 07/26/20 06:34 07/26/20 06:34 07/26/20 06:34 Oxygen Flow Rate (L/min) 2 Oxygen Delivery Method Room Air Weight: 69.3 kg Body Mass Index (BMI) 23.3 Intake and Output for Last 24 Hours 07/24/20 07/25/20 07/26/20 23:59 23:59 23:59 Intake Total 100 / 100 Balance 100 / 100 General: Alert, No apparent distress HEENT: Atraumatic, Normocephalic Oral: Moist Mucosa, No Gingival or Mucosal Lesions/ Ulcerations Neck: No Nodes, Thyroid Normal Size and Texture Lungs: Clear to auscultation, Normal air movement, No rhonchi, No wheeze, No rales Cardiovascular: Regular rate, Regular Rhythm, Normal S1, Normal S2, No murmurs Abdomen: Bowel Sounds Present, Soft, Non Tender, Non-Distended, No Hepato- splenomegaly Extremities: No edema, No Calf Tenderness Psych/Mental Status: Normal Affect, Appropriate Microbiology Past 72 Hours 07/26/20 05:52 Stool Stool Occult Blood (ELISEO) - Final Occult Blood Positive Laboratory Results 07/26/20 02:40: Magnesium 2.5 07/26/20 02:40: Procalcitonin 1.01 H 07/26/20 02:40: WBC 5.7, RBC 3.37 L, Hgb 9.9 L, Hct 34.4 L, MCV 102.1 H, MCH 29.4, MCHC 28.8 L, RDW Std Deviation 71.8 H, RDW Coeff of Deejay 19.1 H, Plt Count 223, MPV 8.9, Immature Gran % (Auto) 0.500, Neut % (Auto) 71.9 H, Lymph % (Auto) 9.0 L, [place] % (Auto) 15.0 H, Eos % (Auto) 3.2, Baso % (Auto) 0.4, Absolute Neuts (auto) 4.1, Absolute Lymphs (auto) 0.51 L, Nucleated RBC % 0 07/26/20 02:40: Sodium 137, Potassium 5.2 H, Chloride 100, Carbon Dioxide 30.0, Anion Gap 7, BUN 36 H, Creatinine 5.00 H, Estim Creat Clear Calc 13.30, Est GFR (MDRD) Af Amer 15 L, Est GFR (MDRD) Non-Af 12 L, BUN/Creatinine Ratio 7.2 L, Glucose 113 H, Calcium 8.3 L, Total Bilirubin 1.10 H, AST 18, ALT 20, Alkaline Phosphatase 127 H, Total Protein 6.4, Albumin 2.7 L, Globulin 3.7, Albumin/Globulin Ratio 0.7 L 07/26/20 06:33: POC Glucose 114 H Current Medications Acetaminophen (Acetaminophen 325 Mg Tablet) 650 mg PO Q6H PRN PRN PRN Reason: Pain Score 1-10/Temp > 100.7 F Al Hydroxide/Mg Hydroxide (Mag Hydrox/Al Hydrox/Simeth 30 Ml Udc) 30 ml PO Q6H PRN PRN PRN Reason: Gastric Burning Albuterol Sulfate (Albuterol 2.5 Mg/3 Ml Vial.Neb.) 2.5 mg INHALATION Q2H PRN PRN PRN Reason: Dyspnea, wheezing Amiodarone HCl (Amiodarone 200 Mg Tablet) 200 mg PO BID [facility] Last Admin: 07/26/20 08:02 Dose: 200 mg Documented by: Apixaban (Apixaban 2.5 Mg Tablet) 2.5 mg PO BID [facility] Last Admin: 07/26/20 08:03 Dose: 2.5 mg Documented by: Aspirin (Aspirin 81 Mg Tab.Chew) 81 mg PO DAILY@0800 [facility] Last Admin: 07/26/20 08:01 Dose: 81 mg Documented by: Atorvastatin Calcium (Atorvastatin Calcium 20 Mg Tablet) 60 mg PO QHS [facility] Carvedilol (Carvedilol 6.25 Mg Tablet) 6.25 mg PO BID [facility] Last Admin: 07/26/20 08:15 Dose: 6.25 mg Documented by: Cinacalcet (Cinacalcet Hcl 30 Mg Tablet) 30 mg PO DAILY [facility] Ergocalciferol (Ergocalciferol 50,000 Unit Capsule) 50,000 unit PO DAILY [facility] Gabapentin (Gabapentin 100 Mg Capsule) 200 mg PO DAILY [facility] Last Admin: 07/26/20 08:03 Dose: 200 mg Documented by: Guaifenesin (Guaifenesin 10 Ml Udc (200mg/10ml)) 20 ml PO Q4H PRN PRN PRN Reason: COUGH Hydralazine HCl (Hydralazine 20 Mg/Ml Vial) 10 mg IV Q4H PRN PRN PRN Reason: SBP > 160 Sodium Chloride () 1,000 mls @ 100 mls/hr IV .Q10H [facility] Last Admin: 07/26/20 02:48 Dose: 100 mls/hr Documented by: Insulin Human Lispro (Insulin Lispro 100 Unit/Ml Insuln.Pen) 0 unit SC ACHS [facility]; Protocol Last Admin: 07/26/20 06:34 Dose: Not Given Documented by: Isosorbide Dinitrate (Isosorbide Dn 10 Mg Tablet) 10 mg PO BID [facility] Last Admin: 07/26/20 08:13 Dose: Not Given Documented by: Levothyroxine Sodium (Levothyroxine 25 Mcg Tablet) 25 mcg PO DAILY@0600 [facility] Last Admin: 07/26/20 05:49 Dose: 25 mcg Documented by: Melatonin (Melatonin 3 Mg Tablet) 3 mg PO QHS PRN PRN PRN Reason: INSOMNIA Midodrine (Midodrine Hcl 5 Mg Tablet) 2.5 mg PO BID [facility] Nitroglycerin (Nitroglycerin (Inpatient Use) 0.4 Mg Tab.Subl) 0.4 mg SUBLINGUAL Q5M PRN PRN Reason: CARDIAC/CHEST PAIN Nutritional Formula (Lactose Free) (Glucerna Shake 120 Ml Liquid) 120 ml PO 4X/DAY [facility] Last Admin: 07/26/20 08:14 Dose: 120 ml Documented by: Ondansetron HCl (Ondansetron 4 Mg/2 Ml Vial) 4 mg IV Q8H PRN PRN PRN Reason: NAUSEA/VOMITING Pantoprazole Sodium (Pantoprazole Sodium 40 Mg Tablet) 40 mg PO BID [facility] Last Admin: 07/26/20 08:03 Dose: 40 mg Documented by: Prochlorperazine Edisylate (Prochlorperazine 10 Mg/2 Ml Vial) 5 mg IV Q4H PRN PRN PRN Reason: Breakthrough nausea/vomiting Sevelamer Carbonate (Sevelamer Carbonate 800 Mg Tablet) 800 mg PO TIDCM [facility] Last Admin: 07/26/20 08:02 Dose: 800 mg Documented by: Sodium Chloride (0.9% Saline Lock 10 Ml Syringe) 10 - 40 ml IV UD PRN PRN Reason: SALINE FLUSH Last Admin: 07/26/20 02:55 Dose: 10 ml Documented by: Throat Lozenges (Benzocaine/Menthol 1 Lozenge) 1 lozenge MUCOUS MEM Q2H PRN PRN PRN Reason: SORE THROAT Discharge Diet: Renal Diet Home Medications: Medications to take at Discharge Aspirin [Aspirin, Baby] 81 mg PO DAILY@0800 11/25/13 Gabapentin [Neurontin] 200 mg PO QHS 11/25/13 Isosorbide DN [Isordil] 10 mg PO BID 11/25/13 Levothyroxine [Synthroid] 25 mcg PO DAILY 11/25/13 Omeprazole [Prilosec] 20 mg PO DAILY 11/25/13 Vitamin B Complex Vit C No.3 [B Complex with Vitamin C] 1 each PO DAILY 11/25/13 Atorvastatin Calcium [Lipitor] 60 mg PO QHS 06/26/16 Carvedilol [Coreg (Beta Cheryl)] 6.25 mg PO BID 06/26/16 Cinacalcet HCl [Sensipar] 30 mg PO DAILY 06/26/16 Famotidine 20 mg PO DAILY 06/12/20 Sevelamer Carbonate [Renvela] 1,600 mg PO TID 06/12/20 Apixaban [Eliquis] 2.5 mg PO BID tab 06/14/20 Amiodarone HCl 200 mg PO BID 07/26/20 B Complex W-C No.20/Folic Acid [Renal Caps Softgel] 1 mg PO QHS 07/26/20 Insulin Glargine [Lantus SoloStar Pen] 40 units SC DAILY 07/26/20 Insulin Lispro [Humalog KwikPen] 100 unit SQ ACHS 07/26/20 Midodrine HCl 2.5 mg PO BID 07/26/20 Primary Care Physician: Reginald Esteves MD [Primary Care Provider] - Within 2 Weeks Please Follow Up With: Hemodialysis When: every , , Thursday Disposition: Asstd Living/Non-Skill [place] Minutes spent on discharge:: 30 Patient Condition:: Fair Medical Necessity - Tobacco Use Smoking Status: Former smoker Tobacco Use: Non-smoker Meaningful Use Info Meaningful Use Diagnoses (Choose all that apply): None applicable OBSV E&M: 95571 Observation care discharge
--- NOTE | 2020-07-26 08:42 | CASEMGMT ---
Addendum entered by Rika Hernández 07/26/20 14:36: SW received call from Norah in admissions. SW confirmed with Norah that plan is still for pt to discharge from [facility] today after dialysis. Norah states understanding, states she is leaving but just to call nursing blacksmith supervisor/staff to update on transportation time. Addendum entered by Rika Hernánedz 07/26/20 14:01: SW in to speak with pt. SW introduced self and role at [facility]. Pt confirms he came from [facility] and plans to return. Addendum entered by Rika Hernández 07/26/20 09:45: SW received call from Rachna at [facility]. Rachna states pt is terminal worker resident, is able to return when medically cleared. Rachna states pt has already had COVID, doesn't need a COVID test to return. NATHALIE updated Rachna that pt will like discharge today. Original Note: Social Work Note Pt is listed as being from [facility]. Pt may discharge back to [facility] today. NATHALIE placed a call to [facility] and left message for Maria Esther in admissions requesting call back. NATHALIE asked Maria Esther if pt will need another COVID test to return (per handoff communication, COVID test was negative at ). NATHALIE waiting for call back. Plan: Return to [facility] Rika Hernández KNOCKER OFF, PRINCIPAL ARCHITECT
--- NOTE | 2020-07-26 09:08 | CASEMGMT ---
SELENA BLAIR NOTE: Per pt, he goes to [facility] in [place] for dialysis. Call placed to [facility] and spoke w/Amarilis. She was made aware pt has been admitted to [facility] and will receive dialysis @ [facility] today, plan is for d/c later this afternoon, and then pt will be returning to his regular scheduled chair time on Sat @ [facility]. [facility]/[place]: PH: [phone] Jose Juan MAE RN CM
[2020-07-26] MEDS: Cinacalcet HCl 30 MG Tablet PO (10:26)
[2020-07-26] MEDS: Midodrine HCl 5 MG Tablet 2.5 MG PO (10:42)
[2020-07-26] MEDS: Lidocaine/Prilocaine HCl 5 GM Tube TOPICAL (11:05)
[2020-07-26] MEDS: Heparin 10,000 UNITS/10 ML Vial 6000 UNITS IV (11:59)
[2020-07-26 12:26] LABS: Bedside Glucose 151 mg/dL (70-110)
[2020-07-26] MEDS: Midodrine HCl 5 MG Tablet PO (13:01)
--- NOTE | 2020-07-26 15:13 | CASEMGMT ---
Addendum entered by Rika Hernández 07/26/20 16:14: SW completed transportation form and placed on SNF folder and copy on pt's chart. SW updated RN that Itz would like to be called again regarding medical update. Addendum entered by Rika Hernández 07/26/20 15:29: SW received call from pt's sister Itz. SW updated Itz that pt will be returning to [facility] today and transportation is arranged for 5:00pm. Itz asked what they found out medically regarding pt. NATHALIE informed Itz that this worker cannot discuss medical care but can ask RN to call her. Itz asked that RN do call her for an update. SW to update RN. Original Note: Social Work Note Discharge is in for pt to return to [facility]. NATHALIE faxed completed discharge paperwork to [facility] including transfer to extended care facility, signed medication list, any scripts and COVID screening tool. Original in SNF folder and copy on pt's chart. NATHALIE spoke with RN, pt is able to transport via wheelchair van and requests transportation be arranged for 5:00pm. [facility]ALIE [facility] and arranged [facility] via wheelchair van for 5:00pm. SW updated RN and pt on transportation time. Pt gave this worker permission to call his sister Itz to update her. NATHALIE attempted to call pt's sister Itz to update, no answer, SW left message for Itz to call this worker back. NATHALIE placed a call to [facility] and spoke with Lenka and updated her on transportation time. NATHALIE updated elementary secretary on transportation time. Plan: Return to [facility] terminal operator [facility] transporting pt via wheelchair van at 5:00pm Rika Hernández OVEN PRESS TENDER, RAW STOCK MACHINE FEEDER
[2020-07-26 15:36] LABS: Bedside Glucose 143 mg/dL (70-110)
--- NOTE | 2020-07-26 15:50 | DIALYSIS ---
Hemodialysis completed x 3.5 hours. d/t hypotension no fluid was removed today/ran even. Extra dose of midodrine was given on tx. pt was asymptomatic with pressures. Hemostasis obtained x 5 mins art. site x 10 mins rose.site. gauze/paper tape applied. Report to Steven RN was given at bedside.
--- NOTE | 2020-07-26 16:23 | NURSING ---
Report called Bere the receiving nurse.
--- NOTE | 2020-07-26 16:28 | NURSING ---
Itz, the sister and POA, updated and that pt will be discharged back to [facility].
--- NOTE | 2020-07-26 19:41 | NURSING ---
Relaxing in bed awaiting transport back to [facility].
== END 2020-07-26 21:00 | disposition skilled nursing facility (03) ==
PROVIDERS: Admitting Provider Family Medicine; PCP Internal Medicine
DX: R19.7 Diarrhea, unspecified (principal); G93.40 Encephalopathy, unspecified; F02.80 Dementia in other diseases classified elsewhere, unspecified severity, without behavioral disturbance, psychotic disturbance, mood disturbance, and anxiety; G30.9 Alzheimer's disease, unspecified; E03.9 Hypothyroidism, unspecified; E78.5 Hyperlipidemia, unspecified; I13.2 Hypertensive heart and chronic kidney disease with heart failure and with stage 5 chronic kidney disease, or end stage renal disease; I48.92 Unspecified atrial flutter; E11.22 Type 2 diabetes mellitus with diabetic chronic kidney disease; I50.32 Chronic diastolic (congestive) heart failure; Z99.2 Dependence on renal dialysis; N18.6 End stage renal disease; K21.9 Gastro-esophageal reflux disease without esophagitis; I47.2 Ventricular tachycardia; Z79.899 Other long term (current) drug therapy; Z79.01 Long term (current) use of anticoagulants; Z79.4 Long term (current) use of insulin; Z79.82 Long term (current) use of aspirin; Z87.891 Personal history of nicotine dependence
CPT/HCPCS: 80053; 82274; 82962; 83735; 84145; 85025; 87506; 87633; 90937; 93005; 96361; 96374; 97162; 97166; 99218; 99251; J7030; A4216; G0257; G0378; G0379; G0463

== ENCOUNTER 2020-09-07 17:51 | Observation (INO) | payer MEDICARE, MEDICAID, SELFPAY ==
[2020-07-26 01:56] VITALS: BMI 23.3
[2020-09-07 17:39] VITALS: BMI 23.8
[2020-09-07 17:40] VITALS: PULSE 92
--- NOTE | 2020-09-07 17:40 | PCS.PANDOC ---
PANDEMIC DOCUMENTATION INITIATED: Date: 09/07/20 Time: 0720
[2020-09-07 17:45] VITALS: BP 96/59; PULSE 88; RESP 18; TEMP 36.6; O2SAT 96
--- NOTE | 2020-09-07 18:02 | PCM.HP.STD ---
Problem List (1) Acute encephalopathy Status: Acute (2) Atrial flutter, paroxysmal Status: Chronic (3) Type 2 diabetes mellitus with hypoglycemia Status: Chronic Qualifiers: (4) ESRD (end stage renal disease) on dialysis Status: Chronic (5) Hypertension Status: Chronic Qualifiers: (6) Hyperlipidemia Status: Chronic Qualifiers: (7) Hypothyroidism Status: Chronic Qualifiers: (8) Tobacco use Status: Chronic (9) Alzheimer's dementia Status: Chronic (10) History of alcohol abuse Status: Chronic (11) Nonsustained ventricular tachycardia Status: Chronic (12) Suspected cardiomyopathy Status: Chronic (13) Atrial flutter Status: Chronic (14) Diarrhea Status: Acute Qualifiers: (15) Hypoglycemia Status: Acute (16) Venous ulcer of right leg Status: Acute History of Present Illness Date of Admission: 09/07/20 Chief Complaint: Syncope due to hypoglycemia/A. fib RVR The patient is a 70 year old M is directly admitted from [place] [facility] after patient was brought to ER from skilled nursing for syncope and found to be hypoglycemic. At that time glucose was found 40 mg deciliter and patient was given D50, glucagon and blood sugar got better, 177 mg/dL. As per ER physician, patient is also on atrial flutter with RVR. EKG shows atrial flutter with variable AV block at 77 bpm. LAD, left bundle branch block. QRS 1 to 44 ms, QTC 527 ms. Patient has history of diabetes mellitus type 2 with long-term complications including neuropathy, nephropathy/ESRD on hemodialysis, retinopathy and diabetic foot. In the morning today, patient was found passed out by nursing staff in SNF was found to blood sugar low. He responded well with D50. Exact duration of syncope unclear. [] Past Medical History Past Medical History (Chronic Problems): Chronic Problems Atrial flutter, paroxysmal (Chronic) Type 2 diabetes mellitus with hypoglycemia (Chronic) ESRD (end stage renal disease) on dialysis (Chronic) Hypertension (Chronic) Hyperlipidemia (Chronic) Hypothyroidism (Chronic) Tobacco use (Chronic) Alzheimer's dementia (Chronic) History of alcohol abuse (Chronic) Nonsustained ventricular tachycardia (Chronic) Suspected cardiomyopathy (Chronic) Atrial flutter (Chronic) Allergies adhesive tape Allergy (Unknown, Verified 06/12/20 04:45) PT UNSURE OF REACTION rosin Allergy (Verified 06/26/16 07:04) Unknown Home Medications: Ambulatory Orders Medication Instructions Recorded Aspirin [Aspirin, Baby] 81 mg PO DAILY@0800 11/25/13 Gabapentin [Neurontin] 200 mg PO QHS 11/25/13 Levothyroxine [Synthroid] 25 mcg PO DAILY 11/25/13 Omeprazole [Prilosec] 20 mg PO DAILY 11/25/13 Vitamin B Complex Vit C No.3 [B 1 each PO DAILY 11/25/13 Complex with Vitamin C] Atorvastatin Calcium [Lipitor] 20 mg PO QHS 06/26/16 Carvedilol [Coreg (Beta Cheryl)] 6.25 mg PO BID 06/26/16 Cinacalcet HCl [Sensipar] 30 mg PO DAILY 06/26/16 Famotidine 20 mg PO DAILY 06/12/20 Sevelamer Carbonate [Renvela] 1,600 mg PO TID 06/12/20 Apixaban [Eliquis] 2.5 mg PO BID tab 06/14/20 Amiodarone HCl 200 mg PO BID 07/26/20 B Complex W-C No.20/Folic Acid 1 mg PO QHS 07/26/20 [Renal Caps Softgel] Insulin Glargine [Lantus SoloStar 40 units SC DAILY 07/26/20 Pen] Insulin Lispro [Humalog KwikPen] 100 unit SQ ACHS 07/26/20 Midodrine HCl 2.5 mg PO BID 07/26/20 Acetaminophen 650 mg PO Q6H PRN PRN 09/07/20 Surgical History: - - Fistula placement. Psychiatric History: No pertinent psych hx Smoking Status: Former smoker Tobacco Use: Cigarettes - *Family History Maternal History Items: Cancer - Mother with history of cancer, unclear type. Paternal History Items: Heart Disease Review of Systems Constitutional: Reports: Malaise, Weakness, Fatigue. Denies: Chills, Fever, Weight Change HEENT: Denies: Head Aches, Sinus Congestion, Sinus Drainage Cardiovascular: Reports: Syncope. Denies: Chest Pain, Chest Pressure, Chest Tightness, Palpitations Respiratory: Denies: Cough, Shortness of breath at rest, Sputum production Gastrointestinal: Denies: Abdominal Pain, Nausea, Vomiting Genitourinary: Reports: - - Patient is anuric. ESRD on hemodialysis Musculoskeletal: Reports: Back Pain, Joint Pain. Denies: Joint Tenderness Skin: Reports: Dryness - Dry skin of feet with chronic paronychia/deformity of nails, Wounds - Right lower leg venous ulcer just above medial malleolus, superficial in nature. Had blisters which ruptured in the morning today. Neurological: Denies: Numbness, Tingling, Focal weakness Psychiatric: Denies: Anxiety, Depression, Homicidal Ideations, Suicidal Ideations Hematologic/ Lymphatic: Denies: Easy Bruising, Easy Bleeding VTE Information - Inpt Only VTE Present on Admission: No VTE Mechan Device Prophylaxis: None VTE Pharm Prophylaxis ordered?: No Reason prophylaxis not ordered:: Procedure Not Indicated - Patient on Eliquis. Objective: Physical exam General: Alert, Oriented x3, Cooperative HEENT: Atraumatic, PERRLA, EOMI, Normocephalic Oral: No Gingival or Mucosal Lesions/ Ulcerations Neck: Supple, No JVD, Negative Carotid Bruits Lungs: Air entry diminished in bilateral lung bases. No crepitation/rhonchi Cardiovascular: Irregular heart rate and rhythm, A. fib, Normal S1, Normal S2, No murmurs. Dialysis access AV fistula on left arm. Abdomen: Bowel Sounds Present, Soft, Non Tender, Non-Distended : No renal angle tenderness. No suprapubic tenderness. Extremities: No edema, Capillary Refill Less than 3 Seconds Skin: Superficial venous ulcer superior to right medial malleolus. Superficial slough present. Dry skin of feet with fissures, chronic paronychia Musculoskeletal: No Tenderness to Palpation of Joints or Extremities Neurological: Cranial nerves II-XII grossly intact, Deep Tendon Reflexes 2+/4 and Symmetrical, Neuro grossly intact Psych/Mental Status: Normal Affect, Appropriate. - Physical Exam Vitals/I&O's: Vital Signs Temp Pulse Resp BP Pulse Ox 97.8 F 88 18 96/59 L 96 09/07/20 17:45 09/07/20 17:45 09/07/20 17:45 09/07/20 17:45 09/07/20 17:45 Oxygen Delivery Method Room Air Weight: 156 lb 11.979 oz Body Mass Index (BMI) 23.8 Current Medications Sodium Chloride () 250 mls @ 15 mls/hr IV .[id number] PRN PRN Reason: Saline Flush Sodium Chloride () 250 mls @ 15 mls/hr IV .[id number] PRN PRN Reason: Additional IVPB Infusion Sodium Chloride (0.9% Saline Lock 10 Ml Syringe) 10 - 40 ml IV UD PRN PRN Reason: SALINE FLUSH Assessment/Plan All Active Problems Hypoglycemia (Acute) Venous ulcer of right leg (Acute) Acute encephalopathy (Acute) Diarrhea (Acute) This is 70-year-old gentleman admitted with syncope from hypoglycemia. Patient was found in A. fib with RVR in [place] [facility] and was transferred here. 1. Persistent A. fib with RVR. History of NSVT: Patient is admitted in PCU on telemetry. Heart rate is controlled. Patient on amiodarone 200 mg twice daily, Coreg 6.25 mg twice daily and Eliquis 2.5 mg twice daily and continued. Check TSH and free T4 tomorrow a.m. 2D echo is ordered for tomorrow a.m. Serial troponins. Patient has low blood pressure, systolic 96/59. Midodrine 10 mg 3 times daily started. Chest x-ray reported normal. Chest x-ray reported mild increased interstitial opacities and small right pleural effusion, suggestive CHF no evidence of pneumothorax. Troponin normal. The exact type and etiology of CHF unclear. Patient does not have echo in our system. 2. Diabetes mellitus type 2 with hypoglycemia and chronic long-term complications including diabetic neuropathy, retinopathy and nephropathy/ESRD: Accu-Cheks before meals and at bedtime with only low-dose sliding scale. Hold Lantus and scheduled insulin. Since patient was on Lantus 40 subcutaneous daily. 3. Right superficial venous ulcer: The blister has ruptured. Will consult wound care. Local dressing dry to bed. Mupirocin ordered. 4. Acute encephalopathy/syncope from hypoglycemia: Patient is awake and alert. Denies any prodromal symptoms of chest pain/pressure, shortness of breath, palpitation. 5. ESRD on hemodialysis: We will consult [place] [facility]. His dialysis days are Thursday, and Thursday. CMP reviewed. K3.8. Sodium 133. Anion gap 9. Bicarbonate 34. BUN/creatinine 21/3.22. Liver profile within normal limit except serum albumin 3.3. 6. Chronic anemia secondary to anemia of chronic disease: Patient hemoglobin is 10. Platelet count 196,000.. WBC count normal. Other comorbidities include Alzheimer's dementia, history of chronic alcohol use, and hypothyroidism: Patient was last admitted between 07/26 2020 and 05/2020 for acute encephalopathy and low blood pressure was started on midodrine.For acute encephalopathy Living will/advanced directive/end of life care: Patient does not have living will or advanced directive. Her sister is power of prosecuting attorney for health. After discussion of benefits/risks procedures involved with full code, DNR CC arrest and DNR CC, the patient opted for DNR-CC Arrest with no intubation Patient does not want artificial life support including intubation, tube feed, ventilator and/chest compression, central venous catheter, vasopressor and DC shock if needed Total time spent in [id number] encounter in discussion of advanced directive 16 minutes. OBSV E&M: 03988 Initial observation care L3 Procedures: 46962 Advncd Care Plan 30 Min
[2020-09-07 18:56] LABS: Bedside Glucose 58 mg/dL (70-110)
[2020-09-07 19:00] VITALS: PULSE 91
[2020-09-07 19:38] LABS: Magnesium 2.1 mg/dL (1.6-2.6)
[2020-09-07 20:08] LABS: BNP,B-Type NATRIURETIC PEPTIDE > 5000.0 pg/mL (0-100)
[2020-09-07 20:35] VITALS: O2SAT 94
[2020-09-07] MEDS: Amiodarone 200 MG Tablet PO ×2 (20:47→20:48)
[2020-09-07] MEDS: Midodrine HCl 5 MG Tablet 10 MG PO (20:47)
[2020-09-07] MEDS: Gabapentin 100 MG Capsule 200 MG PO (20:47)
[2020-09-07] MEDS: APIXABAN 2.5 MG TABLET PO (20:49)
[2020-09-07] MEDS: Folic Acid/Vitamin B Comp W-C 1 Capsule 1 CAP PO (20:50)
[2020-09-07] MEDS: Atorvastatin Calcium 20 MG Tablet PO (20:50)
[2020-09-07 20:58] VITALS: BP 89/48; PULSE 72; RESP 16; TEMP 36.6; O2SAT 94
[2020-09-07] MEDS: Mupirocin Ointment 22gm Tube 1 APPLIC TOPICAL (21:11)
[2020-09-07 21:35] LABS: Bedside Glucose 77 mg/dL (70-110)
[2020-09-07 22:30] VITALS: BP 105/56; PULSE 97; RESP 16; TEMP 36.8; O2SAT 93
[2020-09-08] VITALS (8 sets, daily range): BP systolic 93–127; BP diastolic 48–71; PULSE 80–101; RESP 16; TEMP 36.6–37.1; O2SAT 93–95
[2020-09-08] MEDS: SEVELAMER CARBONATE 800 MG TABLET PO ×2 (06:20→13:59)
[2020-09-08] MEDS: Calcium Acetate 667 MG Capsule 1334 MG PO (06:20)
[2020-09-08] MEDS: Midodrine HCl 5 MG Tablet 10 MG PO ×2 (06:21→14:01)
[2020-09-08] MEDS: Levothyroxine 25 MCG TABLET PO (06:22)
[2020-09-08 06:39] LABS: Absolute Lymphocyte Count 0.92 X10^3/uL (0.83-4.51); Absolute Neutrophil Count 6.6 X10^3/uL (2.0-7.7); Basophil# 0.04 X10^3/uL; Basophil% 0.5 % (0-1); Eosinophil# 0.18 X10^3/uL; Eosinophils% 2.1 % (0-5); Hematocrit 30.9 % (40-54); Hemoglobin 9.3 g/dL (13.0-16.5); Lymphocyte # 0.92 X10^3/ul (4.0); Lymphocyte % 10.8 % (19-41); Mean Corp Hgb Conc 30.1 g/dL (32-36); Mean Corpuscular Hgb 29.3 pg (27.0-32.0); Mean Corpuscular Volume 97.5 fL (80-94); Mean Platelet Vol. 8.7 fl (6.2-12.0); Monocyte# 0.73 X10^3/uL; Monocyte% 8.6 % (0-10); NRBC Flagged by Analyzer 0 % (0-5); Neutrophil # 6.58 X10^3/uL (2.7-7.7); Neutrophil % 77.5 % (47-70); Platelet Count 204 K/mm3 (150-450); RBC Distribution Width CV 18.5 % (11.6-14.6); RBC Distribution Width SD 64.8 fl (35.1-43.9); Red Blood Count 3.17 M/mm3 (4.6-6.2); White Blood Count 8.5 K/mm3 (4.4-11.0)
[2020-09-08 07:05] LABS: Bedside Glucose 109 mg/dL (70-110)
[2020-09-08 07:05] LABS: Anion Gap 4 (5-15); BUN 34 mg/dL (7-18); BUN/Creat Ratio 8.3 RATIO (10-20); Calcium,Total 7.2 mg/dL (8.5-10.1); Chloride 95 mmol/L (98-107); Cholesterol 67 mg/dL (200); EST Glomerular Filtration Rate 15 mL/min (>60); Est Glom Filt Rate - Afr Amer 19 mL/min (>60); Estimated Creatinine Clearance 16.22 ml/min; Glucose 114 mg/dL (74-106); High Density Lipoprotein 36 mg/dL; Potassium 5.2 mmol/L (3.5-5.1); Sodium Level 130 mmol/L (136-145); T4 Free Direct 1.27 ng/dL (0.76-1.46); Thyroid Stim Hormone (TSH) 2.57 uIU/mL (0.358-3.74); Triglycerides 89 mg/dL; Very Low Density Lipoprotein 18 mg/dL (5-40)
[2020-09-08 07:12] LABS: Hemoglobin A1c 7.4 % (3.8-5.6)
--- NOTE | 2020-09-08 10:38 | CASEMGMT ---
Addendum entered by Ingrid Dawson 09/08/20 11:08: Richa @ [facility] also notified that pt is currently getting dialysis @ [facility] and plan is for pt to discharge back to [facility] today after dialysis completed. Original Note: SELENA BLAIR NOTE: Pt gets dialysis @ [facility] in [place]. Call placed to them at this time and they were notified of pt's admission to [facility]. Pt's chair time @ [facility] is /SAT @ 9898. Jose Juan MENDOSAN SELENA BLAIR
--- NOTE | 2020-09-08 11:28 | CASEMGMT ---
Social Work Consult: Return to [facility] Informant: business executive Met with patient in room. Introduced self and social work assistant role. This social work assistant inquired about patient discharge plans. Patient reports that [facility] is my home. Patient reports to have been at [facility] for the past 10 years. Patient confirms to want to return to the [facility]. Patient with no concerns or questions in regards to discharge, just want to get back home. Telephone call to Travon Bashir. Travon confirms that patient is a long-term resident and is able to return when medically cleared. Medical team updated on discharge plan. Green Sheet placed on chart. PLAN: [facility] - [facility] resident. Tabitha PIÑA, ENIO-S
[2020-09-08 11:41] LABS: Bedside Glucose 111 mg/dL (70-110)
[2020-09-08] MEDS: oxyCODONE 5 MG Tablet PO (12:44)
--- NOTE | 2020-09-08 13:34 | PCM.TXEXTCAR ---
- Diet 09/07/20 18:51 Diet: Cardiac: Calorie-Controlled Food consistency:: Regular Liquid Consistency:: Regular/Thin How many daily calories?: 1800 calorie - Routine Orders/Code Status Routine Lab Work: - - Fingerstick blood sugars ACQHS, Humalog SQ per sliding scale: 200-250- 5 units, 251-300- 8 units, 301-350-12 units, 351-400- 15 units - Wound(s) rt lower leg Wound Type: Stasis Ulcer bilateral legs Wound Type: scratches - Therapies Weight Bearing: Weight bearing as tolerated - Problem/Diagnosis (1) Venous ulcer of right leg Status: Chronic (2) ESRD (end stage renal disease) on dialysis Status: Chronic (3) Alzheimer's dementia Status: Chronic (4) Atrial fibrillation Status: Chronic (5) Hypoglycemia Status: Acute - Allergies/Procedures Done in Hospital Allergies/Adverse Reactions: Allergies adhesive tape Allergy (Unknown, Verified 06/12/20 04:45) PT UNSURE OF REACTION rosin Allergy (Verified 06/26/16 07:04) Unknown Procedures: Dialysis - Type of Care/Length of Stay Estimated LOS: More Than 30 Days Type of Care Needed: Intermediate Rehab Potential: Fair Prognosis: Fair - Additional Orders/Day of Discharge H&P will serve as current which was dated: 09/07/20 Day of Discharge: 09/08/20 - Follow Up Care Primary Care Physician: Reginald Esteves MD [Primary Care Provider] -
--- NOTE | 2020-09-08 13:36 | DIALYSIS ---
3.5 hour dialysis complete. Pt requested off 30minutes early. Net UF 1657ML See dialysis flow sheet.
[2020-09-08] MEDS: APIXABAN 2.5 MG TABLET PO (13:58)
[2020-09-08] MEDS: Pantoprazole Sodium 20 MG Tablet PO (13:58)
[2020-09-08] MEDS: Famotidine 20 MG Tablet PO (13:58)
[2020-09-08] MEDS: Cinacalcet HCl 30 MG Tablet PO (14:00)
[2020-09-08] MEDS: Mupirocin Ointment 22gm Tube 1 APPLIC TOPICAL (14:06)
--- NOTE | 2020-09-08 18:28 | DS.PCM_ITS ---
Discharge Date and Diagnosis - Problem List Patient Problems: Active and Suspected Problems Hypoglycemia (Acute) Acute encephalopathy (Acute) Diarrhea (Acute) Date of Admission: 09/07/20 Date of Discharge: 09/08/20 - Primary Discharge Diagnosis Acute Problems: Active Problems #1 hypoglycemia (Acute) #2 chronic atrial fib with RVR #3 type 2 diabetes #4 end-stage renal disease requiring dialysis #5 dementia #6 chronic debility - Secondary Discharge Diagnosis Chronic Problems: Chronic Problems Venous ulcer of right leg (Chronic) Atrial fibrillation (Chronic) Atrial flutter, paroxysmal (Chronic) Type 2 diabetes mellitus with hypoglycemia (Chronic) ESRD (end stage renal disease) on dialysis (Chronic) Hypertension (Chronic) Hyperlipidemia (Chronic) Hypothyroidism (Chronic) Tobacco use (Chronic) Alzheimer's dementia (Chronic) History of alcohol abuse (Chronic) Nonsustained ventricular tachycardia (Chronic) Suspected cardiomyopathy (Chronic) Atrial flutter (Chronic) Hospital Course and Treatment Consultations 09/07/20 18:51 Consult: Onc/Wound/corporate operations compliance manager Routine Comment: Operations: None Procedures: Dialysis Summary of Care Provided: The patient is a 70 year old M was directly placed in observation status from a local emergency room due to persistent hypoglycemia. Patient had been transferred to the outside emergency room due to a low blood sugar at his alf facility at which she was a chronic resident. Patient had been given D50 and glucagon. Patient requested transfer to [facility] for further care. Patient was not hypoglycemic during his hospital stay, he required dialysis as his regular dialysis day was 09/08/2020. Patient's potassium was mildly elevated which was nonsignificant. On 09/08/2020, patient was seen and examined: On examination he appeared older than his stated age, he was cachectic and debilitated. Vital signs as documented. Skin warm and dry and without overt rashes. Neck without JVD, neck was supple, trachea midline, thyroid was normal. Lungs clear bilaterally, normal air movement was noted. Heart exam notable for regular rhythm, normal sounds and absence of murmurs, rubs or gallops. Abdomen unremarkable and without evidence of organomegaly, masses, or abdominal aortic enlargement. Bowel sounds are present, abdomen is not distended. Extremities nonedematous, no cyanosis was noted, no clubbing was noted. Neuro: Cranial nerves II through XII are grossly intact, no focal motor deficits were noted, sensation to light touch and pinprick intact, motor exam 5/5 throughout. Psych: Patient is alert appropriate to simple questions. Patient's medications were reviewed prior to his discharge back to his alf facility, patient was stable for discharge on 09/08/2020 and was discharged to a alf facility. Patient Problems: Active and Suspected Problems Hypoglycemia (Acute) Acute encephalopathy (Acute) Diarrhea (Acute) - Physical Exam Vitals/I&O's: Vital Signs Temp Pulse Resp BP Pulse Ox 97.9 F 94 16 96/55 L 94 09/08/20 14:00 09/08/20 14:35 09/08/20 14:00 09/08/20 14:00 09/08/20 14:00 Oxygen Delivery Method Room Air Weight: 71.1 kg Body Mass Index (BMI) 23.8 Intake and Output for Last 24 Hours 09/06/20 09/07/20 09/08/20 23:59 23:59 23:59 Intake Total 400 / 400 Output Total 1657 / 1657 Balance -1257 / -1257 Laboratory Results 09/07/20 18:37: POC Glucose 58 L 09/07/20 19:13: Troponin I < 0.015 09/07/20 19:13: B-Natriuretic Peptide > 5000.0 H 09/07/20 19:13: Magnesium 2.1 09/07/20 20:33: POC Glucose 77 09/08/20 06:14: Hemoglobin A1c 7.4 H 09/08/20 06:14: WBC 8.5, RBC 3.17 L, Hgb 9.3 L, Hct 30.9 L, MCV 97.5 H, MCH 29.3, MCHC 30.1 L, RDW Std Deviation 64.8 H, RDW Coeff of Deejay 18.5 H, Plt Count 204, MPV 8.7, Immature Gran % (Auto) 0.500, Neut % (Auto) 77.5 H, Lymph % (Auto) 10.8 L, [place] % (Auto) 8.6, Eos % (Auto) 2.1, Baso % (Auto) 0.5, Absolute Neuts (auto) 6.6, Absolute Lymphs (auto) 0.92, Nucleated RBC % 0 09/08/20 06:14: Sodium 130 L, Potassium 5.2 H, Chloride 95 L, Carbon Dioxide 31.0, Anion Gap 4 L, BUN 34 H, Creatinine 4.10 H, Estim Creat Clear Calc 16.22, Est GFR (MDRD) Af Amer 19 L, Est GFR (MDRD) Non-Af 15 L, BUN/Creatinine Ratio 8.3 L, Glucose 114 H, Calcium 7.2 L, Triglycerides 89, Cholesterol 67, LDL Cholesterol 13, VLDL Cholesterol 18, HDL Cholesterol 36 L, TSH 2.57, Free T4 1.27 09/08/20 06:37: POC Glucose 109 09/08/20 11:17: POC Glucose 111 H Home Medications: Medications to take at Discharge Aspirin [Aspirin, Baby] 81 mg PO DAILY@0800 11/25/13 Gabapentin [Neurontin] 200 mg PO BID 11/25/13 Levothyroxine [Synthroid] 25 mcg PO DAILY 11/25/13 Omeprazole [Prilosec] 20 mg PO DAILY 11/25/13 Atorvastatin Calcium [Lipitor] 20 mg PO QHS 06/26/16 Cinacalcet HCl [Sensipar] 30 mg PO DAILY 06/26/16 Sevelamer Carbonate [Renvela] 1 tab PO TID 06/12/20 B Complex W-C No.20/Folic Acid [Renal Caps Softgel] 1 mg PO QHS 07/26/20 Midodrine HCl 5 mg PO Q8H 07/26/20 Acetaminophen 650 mg PO Q6H PRN PRN 09/07/20 Blink Tears 1 drp 4X/DAY PRN PRN 09/07/20 Calcium Acetate 2 tab PO BID 09/07/20 Amiodarone HCl [Cordarone] 200 mg PO DAILY #1 tab 09/08/20 Apixaban [Eliquis] 2.5 mg PO BID tab 09/08/20 Carvedilol [Coreg (Beta Cheryl)] 6.25 mg PO BID tab 09/08/20 Insulin Detemir [Levemir Flextouch] 20 units SQ DAILY #1 09/08/20 Insulin Detemir [Levemir Flextouch] 20 units SQ QHS #1 09/08/20 Insulin Lispro [Humalog Kwikpen] 10 unit SQ TIDCM #1 ml 09/08/20 Following Prescriptions Were Given to Patient: Amiodarone HCl [Cordarone] 200 mg PO DAILY #1 tab Insulin Lispro [Humalog Kwikpen] 10 unit SQ TIDCM #1 ml Insulin Detemir [Levemir Flextouch] 20 units SQ QHS #1 Insulin Detemir [Levemir Flextouch] 20 units SQ DAILY #1 Primary Care Physician: Reginald Esteves MD [Primary Care Provider] - Disposition: Long Term facility Minutes spent on discharge:: 30 Patient Condition:: Stable Medical Necessity - Tobacco Use Smoking Status: Former smoker Tobacco Use: Cigarettes Meaningful Use Info Meaningful Use Diagnoses (Choose all that apply): None applicable OBSV E&M: 06259 Observation care discharge
== END 2020-09-08 13:40 | disposition skilled nursing facility (03) ==
PROVIDERS: Admitting Provider Internal Medicine; PCP Internal Medicine; Referring Provider Internal Medicine; Visit Provider Internal Medicine
DX: E11.649 Type 2 diabetes mellitus with hypoglycemia without coma (principal); E11.22 Type 2 diabetes mellitus with diabetic chronic kidney disease; N18.6 End stage renal disease; I48.92 Unspecified atrial flutter; I48.19 Other persistent atrial fibrillation; I12.0 Hypertensive chronic kidney disease with stage 5 chronic kidney disease or end stage renal disease; E78.5 Hyperlipidemia, unspecified; E03.9 Hypothyroidism, unspecified; F02.80 Dementia in other diseases classified elsewhere, unspecified severity, without behavioral disturbance, psychotic disturbance, mood disturbance, and anxiety; G30.9 Alzheimer's disease, unspecified; G93.40 Encephalopathy, unspecified; I47.2 Ventricular tachycardia; I44.30 Unspecified atrioventricular block; E11.40 Type 2 diabetes mellitus with diabetic neuropathy, unspecified; E11.622 Type 2 diabetes mellitus with other skin ulcer; D63.8 Anemia in other chronic diseases classified elsewhere; L97.819 Non-pressure chronic ulcer of other part of right lower leg with unspecified severity; Z99.2 Dependence on renal dialysis; Z79.899 Other long term (current) drug therapy; Z79.82 Long term (current) use of aspirin; Z79.4 Long term (current) use of insulin; Z87.891 Personal history of nicotine dependence
CPT/HCPCS: 36415; 80048; 80061; 82962; 83036; 83735; 83880; 84439; 84443; 84484; 85025; 90937; 99218; 99251; Q9957; A4216; G0257; G0378; G0379; G0463